=== PATIENT | female | born 1950 | race Caucasian/White ===

== ENCOUNTER → 2018-06-25 09:55 | Outpatient (CLI) | payer MEDICARE, OTHER, SELFPAY ==
--- NOTE | 2018-06-25 | DI.MRI.S_ITS ---
PROCEDURE: MR KNEE RT WO CON INDICATIONS: UNILATERAL PRIMARY OA OF RIGHT KNEE TECHNIQUE: Noncontrast sagittal PD fast spin echo and T2 fast spin echo with fat saturation, sagittal 3-D FLASH with fat saturation; coronal T1 spin echo and PD fast spin echo with fat saturation, and axial PD fast spin echo with fat saturation through the knee. COMPARISON: None. FINDINGS: Image quality: Excellent. Menisci: Medial extrusion of the medial meniscus is present. Linear high signal intensity horizontally to reverse of the medial meniscal body and posterior horn, demonstrating inferior articular surface extension. Degenerative fraying of the free edge of the medial meniscal body and posterior horn. Cruciate ligaments: The anterior and posterior cruciate ligaments appear intact. There is moderate T2 signal elevation along the course of the anterior cruciate ligament, consistent with myxoid degeneration. Medial structures: The medial collateral ligament appears intact. Visualized portions of the pes anserinus tendons appear normal. There is mild T2 signal elevation of the tibial insertion of the semimembranosus. No abnormal bursal fluid. Lateral structures: The lateral collateral ligament demonstrates moderate T2 signal elevation within its substance. The long and short heads of the biceps femoris tendon appear intact. The popliteus tendon appears normal. Iliotibial band appears normal. Anterior structures: The quadriceps and patellar tendons appear intact. Mild lateral patellar subluxation. No femoral trochlear dysplasia or ventral trochlear prominence. Mild edema in the superolateral aspect of the infrapatellar fat pad. Mild prepatellar subcutaneous edema and fluid. Bones and cartilage: No bone marrow contusions or fractures. Moderate tricompartmental periarticular osteophyte formation. A few scattered subchondral cysts within the lateral tibial plateau. Mild degenerative marrow edema within the medial femoral condyle and medial tibial plateau weightbearing aspects. Severe diffuse articular cartilage loss overlies the weightbearing aspects of the medial femoral condyle and medial tibial plateau. Mild diffuse articular cartilage loss overlies the weightbearing aspects of the lateral femoral condyle and lateral tibial plateau. Severe articular cartilage loss overlies the lateral patellar facet and lateral femoral trochlea. Joint space: There is a small knee joint effusion and a small Mcclellan's cyst. Small ganglion cyst along the popliteus. Normal appearing synovial plicae are incidentally noted. IMPRESSION: 1. Tricompartmental osteoarthritis with associated articular cartilage loss. 2. Medial meniscal tearing and extrusion. 3. Partial-thickness lateral collateral ligament tear. 4. Knee joint effusion and Mcclellan's cyst. 5. Insertional tendinitis of the semimembranosus. 6. Findings consistent with lateral patellofemoral friction syndrome in the upper pre-clinical setting. 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 Dictated by: Georgi Vázquez M.D. on 06/25/2018 at 11:35 Approved by: Georgi Vázquez M.D. on 06/25/2018 at 11:43
== END ==
PROVIDERS: Visit Provider Orthopaedic Surgery
DX: M17.11 Unilateral primary osteoarthritis, right knee (principal); S83.241A Other tear of medial meniscus, current injury, right knee, initial encounter; S83.421A Sprain of lateral collateral ligament of right knee, initial encounter; M71.21 Synovial cyst of popliteal space [Baker], right knee
CPT/HCPCS: 73721

== ENCOUNTER 2018-07-31 09:00 | Observation (INO) | payer MEDICARE, OTHER, SELFPAY ==
[2018-07-29 08:30] VITALS: BMI 34.5
[2018-07-30] VITALS (14 sets, daily range): BP systolic 108–148; BP diastolic 49–75; PULSE 50–72; RESP 13–20; TEMP 35.8–37; O2SAT 94–99; BMI 34.5
--- NOTE | 2018-07-30 06:00 | DI.RAD.S_ITS ---
PROCEDURE: XR KNEE RT 1TO2V INDICATIONS: post operative right knee TECHNIQUE: 2 view(s) of the knee acquired. COMPARISON: [facility], MR, MR KNEE RT WO CON, 06/25/2018, 10:14. FINDINGS: Bones: Patient is status post knee joint arthroplasty. Hardware components are in expected positions. Visualized bony structures are intact. Soft tissues: Overlying postoperative changes are noted. IMPRESSION: Total knee arthroplasty with prosthesis in anatomic alignment. Dictated by: Sandra Toledo M.D. on 07/30/2018 at 13:12 Approved by: Sandra Toledo M.D. on 07/30/2018 at 13:13
[2018-07-30] MEDS: ACETAMINOPHEN 325 MG TABLET 975 MG PO ×3 (07:00→19:42)
[2018-07-30] MEDS: LACTATED RINGERS 1,000 ML 42 ML IV (07:01)
[2018-07-30] MEDS: VANCOMYCIN 1,000 MG/200 ML FROZ.PIGGY 200 MG IV (07:01)
[2018-07-30] MEDS: CEFAZOLIN 2 GM/100 ML FROZ.PIGGY IV ×2 (07:52→16:26)
--- NOTE | 2018-07-30 08:07 | PM.PREOP ---
Pre-operative Note Interval Note History & Physical reviewed/Exam performed by Physician: Yes Changes to H&P: No
--- NOTE | 2018-07-30 08:07 | PM.OP.1 ---
Operative Date/Time/Diagnoses Date of procedure: 07/30/18 Time of procedure: 08:02 Pre-op diagnosis: right total knee arthroplasy Post-op diagnosis: same Procedure & Clinicians Procedure: Right total knee arthroplasty Same procedure as scheduled: Yes Indications: The patient has had progressively worsening right knee pain with radiographic changes consistent with arthritis. Non-operative management has failed and the patient has requested total knee replacement. The risks, benefits and alternatives to surgery were discussed with the patient prior to proceeding. Risks discussed included, but were not limited to, failure to relieve pain, stiffness, infection, nerve damage, deep venous thrombosis, pulmonary embolism, stroke, coma, heart attack, permanent paralysis and , as well as the potential need for eventual revision of the prosthetic. Surgeon: Brit Baxter Mems Process Engineer: Edie Savage Anesthesia Type: Spinal Operative Notes Findings: Severe right knee osteoarthritis, adequate stability Closure Type: primary Specimen(s): none sent Prosthetic devices, grafts, tissues, transplants, or devices: Baxter [employer] Nephew Ben BCS2 size 4 right femoral component, size 2 tibia, size 11 poly, 32 by 7-1/2 mm patella Applied: drain(s) Estimated Blood Loss (mL): 250 Blood products transfused: none Tourniquet time (min): 31 Procedure in detail: The patient was seen in the pre-operative area, where the patient identified the right knee as the operative site and this was marked with my initials. The patient received pre-operative antibiotics, and was taken to the operating room and placed on the operative table in the supine position. After satisfactory anesthesia, a real time analyst out was performed. The right leg was encircled with a tourniquet about the proximal thigh, and the leg was prepared from the toes to the tourniquet with ChloroPrep in the usual fashion and draped through sterile drapes. The leg was elevated and exsanguinated with Eschmark bandage and the tourniquet inflated to [250] mmHg pressure. The knee was approached through an approximately 18 cm incision centered over the patella and carried into the knee through a medial parapatellar arthrotomy. A portion of the medial and lateral meniscus was resected. Soft tissue was carefully mobilized around the patella the patella was measured with a caliper. Bone was resected from the patella and the patellar height was reconstituted with up an appropriate sized patellar component. A cover was then placed on the patella. A small amount of additional medial and lateral meniscus was resected. The visionare guide fit well to the distal femur. It looked like an appropriate distal femoral cut and the cut was made without difficulty. The rotation was assessed and the appropriate size femoral guide was placed on the distal femur and finishing cuts were made. There was no evidence of notching. The anterior, posterior and chamfer cuts were then made. The posterior osteophytes and soft tissues were then removed. The posterior capsule was injected with part of a mixture of 60 ml 0.25% Marcaine mixed with 20 ml Exparel for post operative pain control. The remainder of this mixture was injected into the capsule and subcutaneous tissues during cement curing. The tibia was prepared and the visionaire guide fit well to the distal tibia. The rotation was assessed. The patient was placed in extension residual medial and lateral meniscus as well as any residual bone was carefully resected. [No] additional tibia was resected. Hemostasis was achieved especially posteriorly. Additional local was injected into the posterior capsule. The extension gap was assessed and additional releases for gap balancing were performed as necessary. It was checked with the gap inspector final assembly conveyor line. The femoral component was trial was placed and the notch was finished. Trial tibial and femoral components were then placed and the knee placed through a range of motion. Range of motion was [0-130], with good stability throughout the range. The trials were then removed, and the tibia was finished. The bone was prepared with pulsatile lavage, and dried with a sponge. Cement was applied and the final prosthetics placed. Excess cement was removed during and after cement curing. A brief Betadine soak was performed. After confirming there was no extruded cement posteriorly, the final tibial insert was placed. The knee was copiously irrigated and the tourniquet deflated. Hemostasis was obtained with the Bovie. A drain was placed and brought out superolaterally. The capsule was closed with interrupted vicryl suture. The subcutaneous layer was closed with barbed sutures, and the skin with a running 3-0 V-Lock suture and goldie. An Aquacel Ag dressing was applied and the patient was taken to recovery having tolerated the procedure well. Complications: none Condition: stable Disposition: same day surgery Plan for aftercare: The patient will be maintained on a standard total knee replacement protocol with weight bearing as tolerated. The patient will receive aspirin and sequential compression devices for DVT prophylaxis. The patient will be discharged home when safe for the home environment.
[2018-07-30] MEDS: TRANEXAMIC ACID 1,000 MG VIAL 1000 MG INJ ×2 (08:15→09:33)
--- NOTE | 2018-07-30 08:26 | SUR.OPER ---
Supine on padded OR bed. Pillow under head, arms secured on padded armboards <90 degree abduction. Safety belt across torso. Non-operative leg secured with tape over blanket over lower leg. Operative leg secured in DeMayo/Blair positioner. Foam padded brace at thigh of operative leg.
[2018-07-30] MEDS: BUPIVACAINE 0.25% W/ EPI VIAL 50 ML INJ (08:38)
[2018-07-30] MEDS: BUPIVACAINE LIPOSOME 266 MG/20 ML VIAL INJ (08:39)
[2018-07-30] MEDS: POVIDONE-IODINE 15 ML, SODIUM CHLORIDE 0.9% 250 ML TOP (08:40)
--- NOTE | 2018-07-30 08:44 | CM.DANOTE ---
Addendum entered by Caroline Marie LPN 07/30/18 15:46: A d/c to home order is now noted by ortho BRITTANY Irizarry although there is not a progress note from the and there are no therapy notes. Pt arrived to floor mid day per RN Delisa. DCPlanner will check in tomorrow if pt remains here for prn assist with d/c issues and options. Original Note: Discharge Planning/Care Management DCP: assessment: Case received, EMR reviewed and went to room to meet pt and introduce self and role. Pt is still in surgery. Confirmed with RN coordinator that pt is going into room 202 so white board in room is updated with the DCPlanner contact info. Documentation reveals that pt is a 68 year old female who is admitted today for a planned R TKA: surgeon: Dr. Baxter Payer: Medicare and Responsa. Admission status: in review by UR RN team. Anticipate PT will be working with pt. P: follow up with pt to continue to the assessment process and assist prn with d/c issues and options. CM Discharge Assessment Start: 07/30/18 08:43 Freq: Status: Active Protocol: Document 07/30/18 08:43 ITV (Rec: 07/30/18 08:44 ITV [id number]) Discharge Planning Assessment Advance Directives? Yes History Provided By Medical Record Prior Living Arrangements House Household Members spouse Whiteboard Updated in Patient Room with Yes name and ext. # of Helminthology Teacher Comment pt is still in surgery at this time Review Status In Process Next Review Type Continued Stay Review Pre-Anesthesia Assessment Start: 07/29/18 08:30 Freq: Status: Active Protocol: Document 07/29/18 08:30 CAB (Rec: 07/29/18 08:52 CAB [id number]) Pre-Anesthesia Assessment PAC Comment Unable to reach patient by phone x 4 attempts, chart review only. ECHO, NM stress both on 07/22/18 and cardiology visit 07/12/18 to surgery folder for dos Patient Information Reviewed Via Chart Review Diagnostic Results BMP/CMP EKG Other Primary Care Provider Lynn Miller Seen Specialist in Last 12 Months Yes Specialist Seen Contact Center Manager Orthopedist Primary Language Pashto Survey Research Teacher Required No Height 152.4 cm Weight 80.286 kg Body Mass Index (BMI) 34.5 Hx Anesthesia Reactions Unknown Anesthesia Review Requested No Sap Security Architect No Alcohol Intake Frequency Other: None Smoking Status Never smoker Substance Use Type does not use Pain Present Pain Reported Patient is completely paralyzed or No completely immobile Mental Status Oriented to own ability Is patient on oxygen? No Does patient have WILLETT/SOB No Hx Sleep Apnea No Hx Chest Pain No Hx SOB No Hx Syncope or Dizziness No Anti-Coagulant Therapy No Has a Contact Center Manager Yes: Dr. Sanderson-last visit to surgery folder for dos Cardiac Testing Yes: ECHO 07/22/18, NM Stress to surgery folder for dos Hx Pacemaker/ICD No Pacemaker Rep Required? No Cardiac Clearance Received Yes Urinary Catheter Present No Hx Urinary Self Catheterization No Diabetes No Patient No Lactating No Marital Status Lives With spouse
[2018-07-30] MEDS: LACTATED RINGERS 1,000 ML 125 ML IV ×2 (12:18→19:47)
[2018-07-30] MEDS: OXYCODONE IR 5 MG TABLET PO ×4 (13:28→22:54)
--- NOTE | 2018-07-30 14:51 | PC.NURSE ---
1050- Pt admitted to room 202 with R.knee replacement. Dressing to r.knee is cdi with christine wrap in place. Pt given tylenol and not effective for pain control. Pt then given percolone and ice for knee and she is feeling better. Resting comfortably and denies pain.
--- NOTE | 2018-07-30 15:20 | PT.IIE ---
Current Diagnoses Unilateral primary osteoarthritis, right knee (07/30/18) Surgery Performed Operation Date: 07/30/18 07:45 Actual Procedures p Total Knee Arthroplasty(Right) - Brit Baxter MD Surgical History (This Medical Record has been edited. Action required.) History of arthroplasty of left knee (Acute) Hx of abdominal hysterectomy (Acute) Hx of cardiac catheterization (Acute 11/30/08) Hx of cholecystectomy (Acute) Medical History (This Medical Record has been edited. Action required.) CAD (coronary artery disease) (Acute) Depression (Acute) Edema (Acute) HTN (hypertension) (Acute) Hydronephrosis (Acute) Hyperlipidemia (Acute) Hypothyroidism (Acute) Palpitations (Acute) Physical Therapy Inpatient Evaluation/Re-Eval M1 PT/OT-IP Prior Functional Status Start: 07/30/18 11:06 Freq: NEEDED Status: Active Protocol: Document 07/30/18 15:20 AB (Rec: 07/30/18 17:41 AB [id number]) Medical Review Prior Functional Status Medical History Reviewed Yes Communication able to make needs known Mobility and Gait pt stated that she is independent with all mobilities and ambulation without AD Social History Household Members spouse Living Arrangements House Number of Floors (Floors) Two Floors Number of Stairs To Enter/Railing? 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 an RN M2 PT-IP Current Condition Start: 07/30/18 11:06 Freq: NEEDED Status: Active Protocol: Document 07/30/18 15:20 AB (Rec: 07/30/18 17:41 AB [id number]) Physical Therapy Current Condition Current Condition Evaluation Date 07/30/18 Treatment Diagnosis s/p R TKA; difficulty in walking Onset Date 07/30/18 Weight Bearing Status Weight Bearing Status Weight Bear as Tolerated M3 PT-IP Subjective Start: 07/30/18 11:06 Freq: NEEDED Status: Active Protocol: Document 07/30/18 15:20 AB (Rec: 07/30/18 17:41 AB [id number]) Subjective Physical Therapy Visit Type Type Initial Evaluation Visit Start Time 15:20 Visit Stop Time 16:30 Total Visit Minutes 70 Number of PUBLIC RELATIONS PROFESSIONAL Visits 0 Physical Therapy Visit Comments Patient Comments pt agreeable to do PT; stated that she changed her mind about going home today when she felt pain on her knee. Therapy Pain Assessment Pain When Pain Assessed At Rest Pain Present Pain Present Pain Reported Location Right Knee Intensity 3 Scale Used increased to 8/10 with movement Pain Behaviors Guarding Pain Management Techniques Apply Cold Re-positioning Timing of Activity with Medications M4 PT-IP Mobility and Gait Start: 07/30/18 11:06 Freq: NEEDED Status: Active Protocol: Document 07/30/18 15:20 AB (Rec: 07/30/18 17:41 AB [id number]) PT-Bed Mobility Assessment Supine to Sit Supine to Sit Standby Assistance 1 Person Assistance Sit to Supine Sit to Supine Minimal Assistance 1 Person Assistance Scooting Scooting to Edge of Bed Standby Assistance PT-Transfer Assessment Sit to and From Stand Sit to and from Stand Minimal Assistance Equipment Transfer Assistive Device Gait Belt Front Wheeled Walker Orthotic/Prosthetic Devices or Brace: No Transfers Transfer Destination Bedside Commode Transfer Technique Stand Step Pivot Transfer Ability Level of Assist Minimal Assistance 1 Person Assistance Use of Upper Extremities Comments Mobility Comments BP supine: 138/71. pt completed supine to sit SBA with cues. able to sit on EOB SBA. c/o nausea sitting on EOB. BP: 124/80. pt rested sitting and wants to use the toilet. bedside commode positioned. pt completed sit to stand min A and cues and completed step transfer using FWW min A. pt completed sit to stand from the toilet min A and transferred to the bed using FWW min A and cues. pt completed ambulation in room. pt stated that she cannot do stair training today and requested to go back to bed due to nausea. pt completed sit to supine min A to elevated RLE up on bed. ice pack provided. call light and table placed within reach. Gait Assessment Gait Gait Assistance Required: Minimum Assistance Distance (Feet) 50 Able to Maintain Weight Bearing Status Yes During Gait Assistive Devices Assistive Device Gait Belt Front Wheeled Walker Orthotic/Prosthetic Devices or Brace: No Gait Deviations General Gait Pattern Antalgic Decreased Stride Length Decreased Feet Clearance Factors Limiting Gait Function Factors Limiting Gait Function Decreased Activity Tolerance Decreased Strength Limited Range of Motion Pain Poor Balance Poor Safety Awareness PT-Balance Assessment Standing Balance and Reactions Static Standing Balance Ability Fair Dynamic Standing Balance Ability Fair Device Used FWW M5 PT-IP Objective Assessments Start: 07/30/18 11:06 Freq: NEEDED Status: Active Protocol: Document 07/30/18 15:20 AB (Rec: 07/30/18 17:41 AB [id number]) Orientation Orientation/Cognition Level of Alertness Alert Orientation Name Age Place Situation Safety Awareness Decreased Safety Awareness Memory Description Short Term Impaired Gross Range of Motion Lower Extremity ROM Assessment Right Impaired Impairments R knee flexion: 50 deg Strength Lower Extremity Strength Assessment Right Impaired Knee 3-/5 Coordination Assessment Gross Coordination Gross Coordination WNL Sensation Assessment Sensation Gross Sensation WNL Muscle Tone Muscle Tone WNL Yes M6 PT-IP Treatment Start: 07/30/18 11:06 Freq: NEEDED Status: Active Protocol: Document 07/30/18 15:20 AB (Rec: 07/30/18 17:41 AB [id number]) Physical Therapy Treatment Exercises Exercises Gluteal Sets Quad Sets Heel Slides Education Education Provided Precautions Weight Bearing Status Post-Op Packet Safety M7 PT-IP Assessment and Plan Start: 07/30/18 11:06 Freq: NEEDED Status: Active Protocol: Document 07/30/18 15:20 AB (Rec: 07/30/18 17:41 AB [id number]) PT Summary Assessment and Plan Potential Rehabilitation Potential Good Status of Condition at Evaluation Evolving Summary Impairments Pain ROM Strength Balance Coordination Sensation Tone Cognition Bed Mobility Transfers Gait Activity Tolerance Assessment Summary pt requiring min A with mobility and with c/o nausea limiting activity. pt plans to go home with spouse to assist her. set up caregiver training tomorrow Sun, at 1030 am. Goals Bed Mobility Goal Standby Assistance Transfer Goal Standby Assistance Crutches Gait Goal Standby Assistance Crutches Gait Distance 150 Other Goals up/down 3 steps without rails CGA up/down 14 steps with R rail ascending SBA Days to Meet Goals 5 Frequency of Treatment Frequency Of Treatment Twice a Day Treatment Plan Physical Therapy Treatment Plan Bed Mobility Training Transfer Training Gait Training Therapeutic Exercise Balance Retraining Post Op Education Discharge Planning Hot or Cold Pack Neuromuscular Re-ed Coordination Retraining Manual Therapy Other Recommendations and Next Treatment ambulation; caregiver training Focus 07/30/18 at 1030 am; stair climbing Recommendations To Nursing Amount of Assist Needed 1 Person Assist Discharge Recommendations PT Discharge Recommendations Home with Assistance Outpatient PT
--- NOTE | 2018-07-30 18:43 | PC.NURSE ---
Mely shift note: Patient up out of bed with PT, only able to mobilize in room. Unable to mobilize outside in hallway and unable to use stairs. Pain control required with Oxycodone PRN, and Zofran administered x 1. Patient does not feel comfortable going home and PT agrees patient requires further therapy. Dr. Valdez notified, and Discharge instructions cancelled for now, until cleared by PT.
[2018-07-30] MEDS: ROSUVASTATIN 10 MG TABLET 5 MG PO (22:01)
[2018-07-30] MEDS: ASPIRIN EC 81 MG TABLET PO (22:01)
[2018-07-30] MEDS: DOCUSATE 100 MG CAPSULE PO (22:01)
[2018-07-31] MEDS: CEFAZOLIN 2 GM/100 ML FROZ.PIGGY IV (00:10)
[2018-07-31] MEDS: OXYCODONE IR 5 MG TABLET PO ×3 (01:40→05:15)
[2018-07-31 03:26] VITALS: BP 142/75; PULSE 58; RESP 18; TEMP 36.5; O2SAT 100
[2018-07-31] MEDS: ACETAMINOPHEN 325 MG TABLET 975 MG PO ×3 (03:34→20:30)
--- NOTE | 2018-07-31 04:13 | PC.NURSE ---
yardage caller DR. Valdez paged via answering service to report pt. C/O increased pain & spasms to rt. knee/leg rated pain level after 975 mg. of Tylenol & Percolone earlier. Awaiting call back.
--- NOTE | 2018-07-31 04:42 | PC.NURSE ---
Called independent consultant MD again, via answering service awaiting call back.
[2018-07-31] MEDS: hydrOXYzine pamoate 25 MG CAPSULE PO ×4 (05:12→23:17)
[2018-07-31] MEDS: LACTATED RINGERS 1,000 ML 125 ML IV (05:26)
[2018-07-31] MEDS: LEVOTHYROXINE 75 MCG TABLET PO (05:26)
--- NOTE | 2018-07-31 06:07 | PC.NURSE ---
0500 Dr. Valdez called back orers received Vistaril 25 mg. PO for spasms & increased Oxycodone to 5-10 mg. Vistaril admin. & another 5 mg. of Oxycodone admin. Re-assessed pt. & pain level @ 0 at this time. Will cont. POC & monitor.
[2018-07-31 07:09] LABS: Hematocrit 34.1 % (36-46); Hemoglobin 11.4 g/dL (12.0-16.0)
--- NOTE | 2018-07-31 07:09 | PM.PNPO.1 ---
Subjective Date Patient Seen: 07/31/18 Interval history: Patient seen bedside s/p TKA POD #1. Patient is having significant nausea/vomiting, and is apprehensive about going home due to pain. She denies CP, SOB. Exam Vital Signs (past 8 hours): - 07/31/18 23:40 08/01/18 04:58 Temperature 98.1 F 98.6 F Pulse Rate 73 64 Respiratory Rate 73 H 16 Blood Pressure 133/74 126/71 Pulse Oximetry 97 96 Oxygen Delivery Method Room Air Oxygen Flow Rate 0 Narrative Exam Narrative: WDWN, mildly distressed. Dressing is CDI, no signs of discharge, minimal erythema. Calf is soft and compressible and she has full ROM of the ankle. Objective Labs Result Diagrams: 07/31/18 06:43 Labs: Laboratory Results - last 24 hr 07/31/18 06:43 Hgb 11.4 L Hct 34.1 L Assessment & Plan Post-op Postoperative Procedures Operation Date: 07/30/18 07:45 Actual Procedures Side Surgeon p Total Knee Arthroplasty Right Brit Baxter MD 1. POD #1 s/p above procedure-change to compazine for N/V, work with PT, pain control. Dispo-based on PT and control of pain Quality VTE Deep Vein Thrombosis/Pulmonary Embolism Present on Admission: No
[2018-07-31 07:25] VITALS: BP 111/72; PULSE 64; RESP 20; TEMP 36.3; O2SAT 99
[2018-07-31] MEDS: PROCHLORPERAZINE 10 MG/2 ML VIAL 5 MG IV (08:07)
[2018-07-31] MEDS: DOCUSATE 100 MG CAPSULE PO ×2 (08:31→20:30)
[2018-07-31] MEDS: ASPIRIN EC 81 MG TABLET PO ×2 (08:31→20:30)
[2018-07-31] MEDS: LISINOPRIL 5 MG TABLET PO (08:31)
[2018-07-31] MEDS: CHOLECALCIFEROL (VITAMIN D3) 1,000 UNIT TABLET 1000 UNIT PO (08:31)
[2018-07-31] MEDS: MORPHINE 4 MG/ML INJ IV (09:13)
[2018-07-31] MEDS: SODIUM CHLORIDE 0.9% 1,000 ML 100 ML IV ×2 (09:14→18:17)
--- NOTE | 2018-07-31 10:55 | PT.IPTN ---
Current Diagnoses Unilateral primary osteoarthritis, right knee (07/30/18) Surgery Performed Operation Date: 07/30/18 07:45 Actual Procedures p Total Knee Arthroplasty(Right) - Brit Baxter MD Physical Therapy Treatment Note M2 PT-IP Current Condition Start: 07/30/18 11:06 Freq: NEEDED Status: Active Protocol: Document 07/30/18 15:20 AB (Rec: 07/30/18 17:41 AB [id number]) Physical Therapy Current Condition Current Condition Evaluation Date 07/30/18 Treatment Diagnosis s/p R TKA; difficulty in walking Onset Date 07/30/18 Weight Bearing Status Weight Bearing Status Weight Bear as Tolerated M3 PT-IP Subjective Start: 07/30/18 11:06 Freq: NEEDED Status: Active Protocol: Document 07/31/18 10:55 GGD (Rec: 07/31/18 12:45 GGD [id number]) Subjective Physical Therapy Visit Type Type Treatment Note Visit Start Time 10:30 Visit Stop Time 10:55 Total Visit Minutes 25 Number of CONDUCTOR/BRAKEMAN Visits 1 Physical Therapy Visit Comments Patient Comments PT willing to work with PT. Therapy Pain Assessment Pain When Pain Assessed At Rest Pain Present Pain Present Pain Reported M4 PT-IP Mobility and Gait Start: 07/30/18 11:06 Freq: NEEDED Status: Active Protocol: Document 07/31/18 10:55 GGD (Rec: 07/31/18 12:45 GGD [id number]) PT-Bed Mobility Assessment Sit to Supine Sit to Supine Minimal Assistance 1 Person Assistance Scooting Scooting to Edge of Bed Standby Assistance PT-Transfer Assessment Sit to and From Stand Sit to and from Stand Contact Guard Assistance Use of Upper Extremities Equipment Transfer Assistive Device Gait Belt Front Wheeled Walker Orthotic/Prosthetic Devices or Brace: No Transfers Transfer Destination Bed Transfer Ability Level of Assist Minimal Assistance 1 Person Assistance Use of Upper Extremities Comments Mobility Comments min A with right LE Gait Assessment Gait Gait Assistance Required: Contact Guard Assist 1 Person Assist Distance (Feet) 50 Assistive Devices Assistive Device Gait Belt Front Wheeled Walker Orthotic/Prosthetic Devices or Brace: No Gait Deviations General Gait Pattern Antalgic Decreased Stride Length Decreased Feet Clearance Factors Limiting Gait Function Factors Limiting Gait Function Decreased Activity Tolerance Decreased Strength Limited Range of Motion Pain Poor Balance Poor Safety Awareness M5 PT-IP Objective Assessments Start: 07/30/18 11:06 Freq: NEEDED Status: Active Protocol: Document 07/30/18 15:20 AB (Rec: 07/30/18 17:41 AB [id number]) Orientation Orientation/Cognition Level of Alertness Alert Orientation Name Age Place Situation Safety Awareness Decreased Safety Awareness Memory Description Short Term Impaired Gross Range of Motion Lower Extremity ROM Assessment Right Impaired Impairments R knee flexion: 50 deg Strength Lower Extremity Strength Assessment Right Impaired Knee 3-/5 Coordination Assessment Gross Coordination Gross Coordination WNL Sensation Assessment Sensation Gross Sensation WNL Muscle Tone Muscle Tone WNL Yes M6 PT-IP Treatment Start: 07/30/18 11:06 Freq: NEEDED Status: Active Protocol: Document 07/31/18 10:55 GGD (Rec: 07/31/18 12:45 GGD [id number]) Physical Therapy Treatment Exercises Exercises Gluteal Sets Quad Sets Heel Slides Seated Knee Flexion/Extension Education Education Provided Safety M7 PT-IP Assessment and Plan Start: 07/30/18 11:06 Freq: NEEDED Status: Active Protocol: Document 07/31/18 10:55 GGD (Rec: 07/31/18 12:45 GGD [id number]) PT Summary Assessment and Plan Summary Assessment Summary Pt had increase in C/O pain and nausea with mobility. She had decrease alertness, but increase alertness with activity. She was limited mobility due to pain. Pt spouse is able to assist at home. Frequency of Treatment Frequency Of Treatment Twice a Day Treatment Plan Physical Therapy Treatment Plan Bed Mobility Training Transfer Training Gait Training Therapeutic Exercise Balance Retraining Post Op Education Discharge Planning Hot or Cold Pack Neuromuscular Re-ed Coordination Retraining Manual Therapy Recommendations To Nursing Amount of Assist Needed 1 Person Assist Discharge Recommendations PT Discharge Recommendations Home with Assistance Outpatient PT
[2018-07-31 12:10] VITALS: BP 137/73; PULSE 56; RESP 18; TEMP 36.6; O2SAT 99
--- NOTE | 2018-07-31 13:31 | PC.NURSE ---
Pt given 5mg of iv compazine this am for nausea and dry heaves. BRITTANY Boo also wrote for pt to have a one time order of iv morphine 4mg and this was helpful for pain. Pt then developed cramps to her r.knee, given vistaril with good effect. Pt up to the bathroom a couple of times and worked with pt, most of her nausea has been when she has been ambulating. visiting and just went down to lunch. Pt is resting comfortably.
[2018-07-31] MEDS: HYDROMORPHONE 2 MG TABLET PO ×2 (15:36→23:20)
--- NOTE | 2018-07-31 15:39 | PT.IPTN ---
Current Diagnoses Unilateral primary osteoarthritis, right knee (07/30/18) Surgery Performed Operation Date: 07/30/18 07:45 Actual Procedures p Total Knee Arthroplasty(Right) - Brit Baxter MD Physical Therapy Treatment Note M2 PT-IP Current Condition Start: 07/30/18 11:06 Freq: NEEDED Status: Active Protocol: Document 07/30/18 15:20 AB (Rec: 07/30/18 17:41 AB [id number]) Physical Therapy Current Condition Current Condition Evaluation Date 07/30/18 Treatment Diagnosis s/p R TKA; difficulty in walking Onset Date 07/30/18 Weight Bearing Status Weight Bearing Status Weight Bear as Tolerated M3 PT-IP Subjective Start: 07/30/18 11:06 Freq: NEEDED Status: Active Protocol: Document 07/31/18 14:56 LJ (Rec: 07/31/18 15:38 LJ [id number]) Subjective Physical Therapy Visit Type Type Treatment Note Visit Start Time 14:56 Visit Stop Time 15:28 Total Visit Minutes 32 Physical Therapy Visit Comments Patient Comments Pt sitting in chair. Reports she had recently ambulated to the toilet. Still groggy from last pain med but willing to get up and ambulate in hallway . Therapy Pain Assessment Pain When Pain Assessed During Mobility Pain Present Pain Present Pain Reported Location Right Knee Intensity 5 Scale Used increased with movement Pain Behaviors Facial Grimacing Moaning Wincing Pain Management Techniques Apply Cold Re-positioning M4 PT-IP Mobility and Gait Start: 07/30/18 11:06 Freq: NEEDED Status: Active Protocol: Document 07/31/18 14:56 [email or web address] (Rec: 07/31/18 15:38 LJ [id number]) PT-Transfer Assessment Sit to and From Stand Sit to and from Stand Contact Guard Assistance Use of Upper Extremities Equipment Transfer Assistive Device Gait Belt Front Wheeled Walker Orthotic/Prosthetic Devices or Brace: No Transfers Transfer Destination Chair Transfer Ability Level of Assist Minimal Assistance 1 Person Assistance Use of Upper Extremities Comments Mobility Comments min A with right LE and IV when getting out of chair Gait Assessment Gait Gait Assistance Required: Contact Guard Assist 1 Person Assist Distance (Feet) 75 Assistive Devices Assistive Device Gait Belt Front Wheeled Walker Orthotic/Prosthetic Devices or Brace: No Gait Deviations General Gait Pattern Antalgic Decreased Stride Length Decreased Feet Clearance Step-to Gait Factors Limiting Gait Function Factors Limiting Gait Function Decreased Activity Tolerance Decreased Strength Limited Range of Motion Pain Poor Balance Poor Safety Awareness Comments Gait Comments Pt performs step-to gait with forward leaning. Required several cues to stand tall as it appeared she would lean too far forward in FWW presenting a balance safety issue. Lacks dorsiflexion in R ankle at this point in time. Pt took 2- 20 sec rest breaks during ambulation. M5 PT-IP Objective Assessments Start: 07/30/18 11:06 Freq: NEEDED Status: Active Protocol: Document 07/30/18 15:20 AB (Rec: 07/30/18 17:41 AB [id number]) Orientation Orientation/Cognition Level of Alertness Alert Orientation Name Age Place Situation Safety Awareness Decreased Safety Awareness Memory Description Short Term Impaired Gross Range of Motion Lower Extremity ROM Assessment Right Impaired Impairments R knee flexion: 50 deg Strength Lower Extremity Strength Assessment Right Impaired Knee 3-/5 Coordination Assessment Gross Coordination Gross Coordination WNL Sensation Assessment Sensation Gross Sensation WNL Muscle Tone Muscle Tone WNL Yes M6 PT-IP Treatment Start: 07/30/18 11:06 Freq: NEEDED Status: Active Protocol: Document 07/31/18 14:56 LJ (Rec: 07/31/18 15:38 LJ [id number]) Physical Therapy Treatment Education Education Provided Safety M7 PT-IP Assessment and Plan Start: 07/30/18 11:06 Freq: NEEDED Status: Active Protocol: Document 07/31/18 14:56 LJ (Rec: 07/31/18 15:38 LJ [id number]) PT Summary Assessment and Plan Potential Rehabilitation Potential Good Status of Condition at Evaluation Evolving Summary Impairments Pain ROM Strength Balance Coordination Sensation Tone Cognition Bed Mobility Transfers Gait Activity Tolerance Assessment Summary Pt had increase in pain but no nausea with mobility. She had decrease alertness, but increase alertness with activity. She was limited mobility due to pain. Pt spouse is able to assist at home. Goals Bed Mobility Goal Standby Assistance Transfer Goal Standby Assistance Crutches Gait Goal Standby Assistance Crutches Gait Distance 150 Other Goals up/down 3 steps without rails CGA up/down 14 steps with R rail ascending SBA Days to Meet Goals 5 Frequency of Treatment Frequency Of Treatment Twice a Day Treatment Plan Physical Therapy Treatment Plan Bed Mobility Training Transfer Training Gait Training Therapeutic Exercise Balance Retraining Post Op Education Discharge Planning Hot or Cold Pack Neuromuscular Re-ed Coordination Retraining Manual Therapy Recommendations To Nursing Amount of Assist Needed 1 Person Assist Discharge Recommendations PT Discharge Recommendations Home with Assistance Outpatient PT
[2018-07-31 17:58] VITALS: BP 127/78; PULSE 77; RESP 20; TEMP 36.8; O2SAT 77
[2018-07-31 19:47] VITALS: BP 144/76; PULSE 60; RESP 20; TEMP 36.7; O2SAT 99
[2018-07-31] MEDS: ROSUVASTATIN 10 MG TABLET 5 MG PO (20:30)
[2018-07-31 23:40] VITALS: BP 133/74; PULSE 73; RESP 73; TEMP 36.7; O2SAT 97
[2018-07-31] MEDS: SODIUM CHLORIDE 0.9% FLUSH 10 ML IV (23:41)
--- NOTE | 2018-07-31 23:57 | PC.NURSE ---
Denies any nausea, states I eat a good dinner. Stopped IVF & saline locked IV access. Requested Vistaril & pain med. 25 mg. Vistaril PO & 2 mg. of PO Dilaudid admin. Will cont. POC & monitor.
[2018-08-01] MEDS: HYDROMORPHONE 2 MG TABLET PO ×2 (02:39→07:30)
[2018-08-01 04:58] VITALS: BP 126/71; PULSE 64; RESP 16; TEMP 37; O2SAT 96
[2018-08-01] MEDS: LEVOTHYROXINE 75 MCG TABLET PO (05:45)
--- NOTE | 2018-08-01 07:10 | P.PN_ITS ---
Subjective Date Patient Seen: 07/31/18 Interval history: Patient seen bedside s/p TKA POD #1. Patient is having sig nificant nausea/vomiting, and is apprehensive about going home due to pain. She denies CP, SOB. Exam Vital Signs (past 8 hours): - 07/31/18 23:40 08/01/18 04:58 Temperature 98.1 F 98.6 F Pulse Rate 73 64 Respiratory Rate 73 H 16 Blood Pressure 133/74 126/71 Pulse Oximetry 97 96 Oxygen Delivery Method Room Air Oxygen Flow Rate 0 Narrative Exam Narrative: WDWN, mildly distressed. Dressing is CDI, no signs of discharge, minimal erythema. Calf is soft and compressible and she has full ROM of the ankle. Objective Labs Result Diagrams: 07/31/18 06:43 Labs: Laboratory Results - last 24 hr 07/31/18 06:43 Hgb 11.4 L Hct 34.1 L Assessment & Plan Post-op Postoperative Procedures Operation Date: 07/30/18 07:45 Actual Procedures Side Surgeon p Total Knee Arthroplasty Right Brit Baxter MD 1. POD #1 s/p above procedure-change to compazine for N/V, work with PT, pain control. Dispo-based on PT and control of pain Quality VTE Deep Vein Thrombosis/Pulmonary Embolism Present on Admission: No
[2018-08-01] MEDS: hydrOXYzine pamoate 25 MG CAPSULE PO (07:30)
[2018-08-01 08:20] VITALS: BP 145/77; PULSE 76; RESP 14; TEMP 36.9; O2SAT 97
[2018-08-01] MEDS: DOCUSATE 100 MG CAPSULE PO (08:23)
[2018-08-01] MEDS: SODIUM CHLORIDE 0.9% FLUSH 10 ML IV (08:23)
[2018-08-01] MEDS: ASPIRIN EC 81 MG TABLET PO (08:23)
[2018-08-01] MEDS: LISINOPRIL 5 MG TABLET PO (08:23)
[2018-08-01] MEDS: CHOLECALCIFEROL (VITAMIN D3) 1,000 UNIT TABLET 1000 UNIT PO (08:23)
[2018-08-01] MEDS: ACETAMINOPHEN 325 MG TABLET 975 MG PO (08:23)
--- NOTE | 2018-08-01 08:27 | PM.DS.1 ---
History of Present Illness Date Patient Seen: 08/01/18 Time Patient Seen: 08:28 Chief complaint: 17640 RIGHT TKA Narrative: Hospital day 3, postop day 2 following right total knee arthroplasty. Patient has remained stable postoperatively. Did have some nausea vomiting 1st postop day. That has resolved. She was having nausea with oxycodone. She was changed to Dilaudid and has done well. Patient feels she is ready to go home today. PT feels she is stable for home. She does have physical therapy scheduled at [facility] in [place]. Discharge Providers Date of admission: 07/30/18 06:01 Discharge Date: 08/01/18 Primary care physician: Bonita Ruby MD Consults: 07/30/18 06:00 Consult to Anesthesiology Routine Comment: Consulting Provider: Anesthesiologist Reason for consultation: Regional block for post operative pain control 07/30/18 11:09 Consult to Physical Therapy Evaluate & Treat Comment: pt wants to discharge home today 07/30/18 Physician Instructions: Evaluate and Treat 07/30/18 11:15 Consult to Discharge Planning Routine Comment: Consult to Physical Therapy Evaluate & Treat Comment: Physician Instructions: postop TKA protocol Consult to Respiratory Therapy Evaluate & Treat Comment: Physician Instructions: Evaluate and treat Discharge provider: Ari Cook PA-C Summary Discharge Diagnosis: Postop right total knee arthroplasty Hospital Course: patient brought to hospital on 07/30/2018 for above-noted surgery. She remained stable postoperatively. Had some nausea and vomiting initially. Progressed well with physical therapy. Ready for discharge home on postop day 2. Status at Discharge Cognitive/behavioral status at discharge: oriented Functional status at discharge: uses cane/walker Overall status at discharge: patient is progressing back to baseline Time Spent with Patient Less than 30 minutes Exam Vital Signs (past 8 hours): - 08/01/18 04:58 Temperature 98.6 F Pulse Rate 64 Respiratory Rate 16 Blood Pressure 126/71 Pulse Oximetry 96 Oxygen Delivery Method Room Air Oxygen Flow Rate 0 Narrative Exam Narrative: legs. Aquacel dressing to right knee is dry without drainage or inflammation. No calf pain or swelling. Pulses symmetrical. Objective Labs Result Diagrams: 07/31/18 06:43 Discharge Plan Discharge Plan Patient Disposition: Home Discharge Med Rec/Prescriptions Prescriptions: New acetaminophen 325 mg Tablet 975 mg PO TID Qty: 0 RF: 0 aspirin 81 mg Tablet,Delayed Release (Dr/Ec) 81 mg PO BID Qty: 0 RF: 0 docusate sodium 100 mg Capsule 100 mg PO BID Qty: 0 RF: 0 oxycodone 5 mg Tablet 5 mg PO Q4-6H PRN (Reason: Pain, Moderate (4-6)) Qty: 0 RF: 0 hydromorphone 2 mg Tablet 2 mg PO Q3H PRN (Reason: Pain, Severe (7-10)) Qty: 20 RF: 0 Continued LEVOTHYROXINE SODIUM 75 mcg PO QDAY Qty: 0 RF: 0 [LIPITOR] 1 tab PO QDAY Qty: 0 RF: 0 CHOLECALCIFEROL (VITAMIN D3) (Vitamin D3) 1,000 unit PO QDAY Qty: 0 RF: 0 lisinopril 5 mg Tablet 5 mg PO DAILY RF: 0 Follow up/Referrals: Brit Baxter MD [Physician] - (Follow up in the office at your previously scheduled post-op appointment in 5-7 days.) Provider Discharge Instructions Diet: Diet as Tolerated Activity: Weightbearing as tolerated, use walker until cleared by physical therapy. Elevate operative leg regularly to reduce swelling. Cold/Heat Therapy: Apply ice to affected area for 20 minutes at a time at least hourly while awake. Skin/Wound/Dressing Care Report to your healthcare provider any signs of infection, such as:: chills, fever, night sweats, increased pain, unusual drainage and unusual redness Dressing: Keep dressing clean, dry, and intact. May shower with it in place but no soaking. Visit Report/Discharge Packet Instructions: DI for Knee Replacement Stand Alone Forms: Surgery Discharge Discharge Data Primary Care Provider: Bonita Ruby Attending Provider: Brit Baxter Admit Date/Time: 07/30/18 06:01 Quality VTE Deep Vein Thrombosis/Pulmonary Embolism Present on Admission: No
--- NOTE | 2018-08-01 11:21 | CM.DPC ---
DCP Cont: Met with patient today. She is being discharged home. Had her sign updated IMM. Pleasant. 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 She will be working with physical therapy before she leaves today. P: Patient is to discharge home today. Denise Mustafa RN/Material Controller
[2018-08-01] MEDS: OXYCODONE IR 5 MG TABLET PO (11:56)
--- NOTE | 2018-08-01 12:09 | PT.IPTN ---
Current Diagnoses Unilateral primary osteoarthritis, right knee (07/30/18) Surgery Performed Operation Date: 07/30/18 07:45 Actual Procedures p Total Knee Arthroplasty(Right) - Brit Baxter MD Physical Therapy Treatment Note M2 PT-IP Current Condition Start: 07/30/18 11:06 Freq: NEEDED Status: Active Protocol: Document 07/30/18 15:20 AB (Rec: 07/30/18 17:41 AB [id number]) Physical Therapy Current Condition Current Condition Evaluation Date 07/30/18 Treatment Diagnosis s/p R TKA; difficulty in walking Onset Date 07/30/18 Weight Bearing Status Weight Bearing Status Weight Bear as Tolerated M3 PT-IP Subjective Start: 07/30/18 11:06 Freq: NEEDED Status: Active Protocol: Document 08/01/18 11:59 SA (Rec: 08/01/18 12:08 SA [id number]) Subjective Physical Therapy Visit Type Type Treatment Note Visit Start Time 11:20 Visit Stop Time 11:45 Total Visit Minutes 25 Number of ROTO GRAVURE PRESS OPERATOR Visits 2 Physical Therapy Visit Comments Patient Comments Pt ready to try stairs, reports low pain level. Therapy Pain Assessment Pain When Pain Assessed During Mobility Pain Present Pain Present Pain Reported Location Right Knee Intensity 2 Scale Used Numeric (1 - 10) M4 PT-IP Mobility and Gait Start: 07/30/18 11:06 Freq: NEEDED Status: Active Protocol: Document 08/01/18 11:59 SA (Rec: 08/01/18 12:08 SA [id number]) PT-Bed Mobility Assessment Rolling Level of Assist Standby Assistance Supine to Sit Supine to Sit Standby Assistance Sit to Supine Sit to Supine Standby Assistance Scooting Scooting to Edge of Bed Standby Assistance PT-Transfer Assessment Sit to and From Stand Sit to and from Stand Standby Assistance Use of Upper Extremities Equipment Transfer Assistive Device Gait Belt Front Wheeled Walker Orthotic/Prosthetic Devices or Brace: No Transfers Transfer Destination Chair Toilet Transfer Technique Stand Step Pivot Transfer Ability Level of Assist Contact Guard Assistance Comments Mobility Comments Pt progressing well with mobility, requiring lower level of assist. No LOB and able to increase WBing through RLE with standing tasks. Gait Assessment Gait Gait Assistance Required: Standby Assistance Contact Guard Assist 1 Person Assist Distance (Feet) 150 Assistive Devices Assistive Device Gait Belt Front Wheeled Walker Orthotic/Prosthetic Devices or Brace: No Gait Deviations General Gait Pattern Antalgic Decreased Stride Length Decreased Feet Clearance Step-to Gait Factors Limiting Gait Function Factors Limiting Gait Function Decreased Activity Tolerance Decreased Strength Limited Range of Motion Comments Gait Comments Increasing gait speed and distance with cues for uprigjht posture and decreasing WBing through UEs. Stair Climbing Assessment Evaluation Level of Assist On Stairs Contact Guard Assistance Devices Stair Climbing Assistive Devices Right Railing Technique/Endurance Stair Climbing Direction Ascend and Descend Stair Climbing Technique Step to Step Number of Steps Climbed 3 Query Text: Stair Climbing Set # Repetitions (reps) 2 Comments Stair Climbing Comments Pt able to manage stairs safely with CGA and use of single rail. Denies pain with task and feels confident she will feel safe with her present. M5 PT-IP Objective Assessments Start: 07/30/18 11:06 Freq: NEEDED Status: Active Protocol: Document 07/30/18 15:20 AB (Rec: 07/30/18 17:41 AB [id number]) Orientation Orientation/Cognition Level of Alertness Alert Orientation Name Age Place Situation Safety Awareness Decreased Safety Awareness Memory Description Short Term Impaired Gross Range of Motion Lower Extremity ROM Assessment Right Impaired Impairments R knee flexion: 50 deg Strength Lower Extremity Strength Assessment Right Impaired Knee 3-/5 Coordination Assessment Gross Coordination Gross Coordination WNL Sensation Assessment Sensation Gross Sensation WNL Muscle Tone Muscle Tone WNL Yes M6 PT-IP Treatment Start: 07/30/18 11:06 Freq: NEEDED Status: Active Protocol: Document 08/01/18 11:59 SA (Rec: 08/01/18 12:08 [id number]) Physical Therapy Treatment Exercises Exercises Ankle Pumps Gluteal Sets Quad Sets Seated Knee Flexion/Extension Education Education Provided Post-Op Packet Safety M7 PT-IP Assessment and Plan Start: 07/30/18 11:06 Freq: NEEDED Status: Active Protocol: Document 08/01/18 11:59 SA (Rec: 08/01/18 12:08 [id number]) PT Summary Assessment and Plan Potential Rehabilitation Potential Good Status of Condition at Evaluation Evolving Summary Assessment Summary Pt ready for d/c this afternoon, at home to provide care, have FWW, elevated toilet seat and able to manage 3 stairs into home. Frequency of Treatment Frequency Of Treatment Twice a Day Treatment Plan Physical Therapy Treatment Plan Bed Mobility Training Transfer Training Gait Training Therapeutic Exercise Balance Retraining Post Op Education Discharge Planning Hot or Cold Pack Neuromuscular Re-ed Coordination Retraining Manual Therapy Recommendations To Nursing Amount of Assist Needed 1 Person Assist Discharge Recommendations PT Discharge Recommendations Home with Assistance Outpatient PT
--- NOTE | 2018-08-01 13:10 | PC.NURSE ---
Discharge after discussion with Dr Baxter, pt not going home with PO dilaudid Rx, this was destroyed prior to d/c per MD request. pt has oxy at home already since george arreola pt. medicated prior to d/c. cleared by PT. d/c instructions provided to pt and her . questions answered to pt satisfaction. aware to contact MD with any additional questions or concerns. pt left in w/c with [employer] escort. States she took all belongings with her.
== END 2018-08-01 12:00 | disposition home or self-care (01) ==
LOC: AC 08-01 10:55 → OR 08-01 13:27 → AC 08-01 13:28 → OR 08-01 13:28
PROVIDERS: Admitting Provider Physician Assistant; Family Provider Internal Medicine; PCP Internal Medicine; Visit Provider Orthopaedic Surgery
PROC: 0SRC0JZ Replacement of Right Knee Joint with Synthetic Substitute, Open Approach (ICD-10-PCS; CPT 27447; principal; 2018-07-30 07:45)
DX: M17.11 Unilateral primary osteoarthritis, right knee (principal); I10 Essential (primary) hypertension; E03.9 Hypothyroidism, unspecified; M81.0 Age-related osteoporosis without current pathological fracture; E66.9 Obesity, unspecified; R00.2 Palpitations; R01.1 Cardiac murmur, unspecified; Z68.34 Body mass index [BMI] 34.0-34.9, adult
CPT/HCPCS: 27447; 36415; 73560; 85014; 85018; 94760; 97110; 97116; 97162; 97530; C1776; G0378; C9290; J0690; J0780; J2250; J2270; J2704; J3010; J3370

== ENCOUNTER → 2019-04-16 15:09 | Outpatient (CLI) | payer MEDICARE, OTHER, SELFPAY ==
[2018-07-30 13:30] VITALS: BMI 34.5
--- NOTE | 2019-04-16 | DI.MG.S_ITS ---
BILATERAL DIGITAL SCREENING MAMMOGRAM 3D/2D WITH CAD: 04/16/2019 Comparison is made to exams dated: 12/16/2015 mammogram, 02/05/2017 mammogram, and 03/12/2018 mammogram - [facility]. The tissue of both breasts is predominantly fatty. Current study was also evaluated with a Computer Aided Detection (CAD) system. No significant masses, calcifications, or other findings are seen in either breast. There has been no significant interval change. IMPRESSION: NEGATIVE There is no mammographic evidence of malignancy. A 1 year screening mammogram is recommended. This exam was interpreted at Station ID: [id number]. NOTE: For mammograms, a report in lay terms will be sent to the patient. Approximately 15% of breast malignancies will not be visualized mammographically. In the management of a palpable breast mass, a negative mammogram must not discourage biopsy of a clinically suspicious lesion. Electronically Signed By: Jazmyne bell/francine:04/16/2019 16:06:23 letter sent: Normal Exam ACR BI-RADS Category 1: Negative [id number]
== END ==
PROVIDERS: PCP Internal Medicine; Visit Provider Internal Medicine
DX: Z12.31 Encounter for screening mammogram for malignant neoplasm of breast (principal); M85.852 Other specified disorders of bone density and structure, left thigh; Z78.0 Asymptomatic menopausal state; E07.9 Disorder of thyroid, unspecified; Z82.62 Family history of osteoporosis
CPT/HCPCS: 77063; 77067; 77080

== ENCOUNTER → 2019-04-28 11:54 | Outpatient (CLI) | payer MEDICARE, OTHER, SELFPAY ==
[2018-07-30 13:30] VITALS: BMI 34.5
[2019-04-28 12:45] LABS: Add Manual Diff / Slide Review NO; Basophils Absolute Auto 0 /uL (0-100); Basophils Percent Auto 0.6 % (0-2); Eosinophils Absolute Auto 100 /uL (0-450); Eosinophils Percent Auto 1.4 % (2-4); Hematocrit 40.6 % (36-46); Hemoglobin 13.8 g/dL (12.0-16.0); Lymphocytes Absolute Auto 1300 /uL (1100-4500); Lymphocytes Percent Auto 22.4 % (25-40); Mean Corpuscular HGB Conc 33.9 % (30-36); Mean Corpuscular Volume 94.4 fL (80-100); Monocytes Absolute Auto 500 /uL (0-900); Monocytes Percent Auto 9.2 % (3-14); Neutrophils Absolute Auto 3800 /uL (1500-7000); Neutrophils Percent Auto 66.4 % (50-75); Platelet Count 280 X10^3/uL (150-400); Red Cell Distribution Width 14.6 % (11.6-14.8); White Blood Cell Count 5.7 X10^3/uL (4.5-11.0)
[2019-04-28 12:55] LABS: Blood Urea Nitrogen 14 mg/dL (7-17); Carbon Dioxide 31 mmol/L (22-32); Chloride 103 mmol/L (98-107); Estimated Glomerular Filt Rate > 60.0 mL/min (>60); Glucose 100 mg/dL (80-110); HEMOLYSIS < 15 (0-50); Potassium 4.6 mmol/L (3.4-5.1); Sodium 139 mmol/L (137-145)
[2019-04-28 12:58] LABS: Hemoglobin A1C% w Est Avg Glu 5.2 % (4.0-6.0)
== END ==
PROVIDERS: PCP Internal Medicine; Visit Provider Orthopaedic Surgery
DX: Z01.818 Encounter for other preprocedural examination (principal); Z01.812 Encounter for preprocedural laboratory examination; R73.9 Hyperglycemia, unspecified; N39.0 Urinary tract infection, site not specified
CPT/HCPCS: 36415; 80048; 83036; 85025; 93005

== ENCOUNTER 2019-05-02 13:53 | Observation (INO) | payer MEDICARE, OTHER, SELFPAY ==
[2018-07-30 13:30] VITALS: BMI 34.5
[2019-04-29 14:52] VITALS: BMI 34.5
[2019-05-01] VITALS (12 sets, daily range): BP systolic 98–141; BP diastolic 54–82; PULSE 65–83; RESP 10–20; TEMP 36.3–37.7; O2SAT 92–100; BMI 34.5
[2019-05-01 14:52] LABS: Bacteria Urine None Seen; RBC Urine None Seen (0-5/HPF); WBC Urine None Seen (0-5/HPF)
[2019-05-01] MEDS: LACTATED RINGERS 1,000 ML 42 ML IV ×2 (15:05→18:25)
[2019-05-01 15:38] LABS: Appearance Urine UA CLEAR; Bilirubin Urine UA NEGATIVE (NEGATIVE); Color Urine UA YELLOW; Glucose Urine UA NEGATIVE (Negative); Ketones Urine UA NEGATIVE (NEGATIVE); Leukocyte Esterase Urine UA NEGATIVE (NEGATIVE); Nitrite Urine UA NEGATIVE (Negative); Occult Blood Urine UA NEGATIVE (Negative); Protein Urine UA NEGATIVE (Negative); Specific Gravity Urine UA 1.015 (1.000-1.035); Urobilinogen Urine UA 0.2 E.U./dL (0.2)
[2019-05-01 15:46] LABS: pH Urine UA 7.5 (4.5-8.0)
[2019-05-01 15:55] LABS: Amorphous Sediment Urine 3+; Culture Indicated Urine Cult Not Indicated
[2019-05-01] MEDS: MIDAZOLAM 2 MG/2 ML VIAL IV (16:01)
--- NOTE | 2019-05-01 16:05 | SUR.PREOP ---
Dr Campo explaining to patient plan for nerve block.
--- NOTE | 2019-05-01 16:26 | PM.PREOP ---
Pre-operative Note Interval Note History & Physical reviewed/Exam performed by Physician: Yes Changes to H&P: No
--- NOTE | 2019-05-01 16:26 | PM.OP.1 ---
Operative Date/Time/Diagnoses Date of procedure: 05/01/19 Time of procedure: 16:35 Pre-op diagnosis: right tibia fracture Post-op diagnosis: same Procedure & Clinicians Procedure: Right ankle open reduction internal fixation with plate Same procedure as scheduled: Yes Indications: 69-year-old female with a comminuted right distal tibia fracture with a history of a right total knee above her tibia fracture. Surgeon: Brit Baxter Building Coordinator: Matheus Millan Anesthesia Type: General and Peripheral nerve block Operative Notes Findings: Comminuted fracture, stable fixation, soft bone Closure Type: primary Specimen(s): none sent Prosthetic devices, grafts, tissues, transplants, or devices: Baxter [employer] Nephew evos medial distal plate 15 hole 195 mm, 1 cc DBM putty Estimated Blood Loss (mL): 250 Blood products transfused: none Tourniquet time (min): 94 Procedure in detail: Patient is brought to the operating room. She underwent the induction of a general anesthesia. A preoperative pain block was placed for postoperative pain control. She was given prophylactic antibiotics and prepped and draped in a standard sterile fashion. Tourniquet was inflated to 250 mm of mercury. A medial skin incision was made dissection was carried out through skin and subcutaneous tissues. Gelpi retractors were placed. The saphenous vein was kicked and nerve were carefully identified and protected. Dissection was carried out down to the tibia. She had a comminuted fracture. It was meticulously reduced and held with plate clamps. Plates were placed along the bone and anticipated length was selected it looked like the 15 hole gave good proximal fixation. The plate was carefully placed along the medial aspect of the tibia and then held with several plate clamps. The fracture was then checked and noted to be anatomically reduced. The plate was filled with a combination of nonlocking and locking screws. An interfragmentary screw was placed specifically across the fracture site. There was good compression. The main fracture plane was checked and noted to be stable. A few of the screws were switched from nonlocking 2 locking. The wound was meticulously irrigated with normal saline. Fluoroscopy was used to check the fixation alignment and screw position. The wound was meticulously irrigated with normal saline. There was a small gap along the posterior lower medial aspect of the tibia this was packed with DBM putty. The wound was closed with interrupted Vicryl and skin goldie. Good quality reduction and fixation was achieved. Patient tolerated the procedure well she was transferred recovery room in satisfactory condition. Complications: none Post-operative Condition: stable Disposition: Acute Care Plan for aftercare: 25 lb weight-bearing on the right lower extremity. Okay to use roll about or a knee walker as tolerated. Return to clinic in 10-14 days for wound check and possible staple removal. Placement of a short leg cast and continued restricted weight-bearing for 6 weeks postoperatively.
--- NOTE | 2019-05-01 16:27 | SUR.PREOP ---
Block start time 1600[] . Monitoring initiated and maintained throughout procedure. Oxygen and medications given per anesthesiologist instructions. Patient remained stable throughout procedure, no adverse reactions noted. Block end time [1615
[2019-05-01] MEDS: CEFAZOLIN VIAL 2 GM in SODIUM CHLORIDE 0.9% 100 ML 200 ML IV (16:45)
--- NOTE | 2019-05-01 17:04 | SUR.OPER ---
Supine on padded OR bed, head on pillow, arms secured on padded arm boards at <90 degrees abduction, legs uncrossed, safety belt at thigh, tape over blanket over lower legs.
--- NOTE | 2019-05-01 17:06 | PM.PROC.1 ---
Procedures Date/Time Date of procedure: 05/01/19 Time of procedure: 16:08 Nerve Block Time out performed: Yes Local anesthetic used: lidocaine 2% (w/ eip 10mL, 10mL 0.5 ropivacaine) Location of anesthetic used: adductor canal Amount of anesthesia used (mL): 20 Nerve blocks: femoral (adductor canal) Procedure successful: Yes Patient tolerated procedure: well Complications: none Additional comments: RIGHT Adductor canal block for post operative pain management. R/B discussed. Site marked. Consent verified/signed. Standard ASA monitors. NC O2. Chloroprep. Sterile technique. Femoral A identified medial mid thigh with US. Lidocaine skin wheal. 100mm x 21g Pajunk needle advanced with in-plane US guidance. Negative aspiration. LA injected medial and lateral to femoral artery. Negative aspiration throughout. No pain, no paresthesia with injection. VSS. Tolerated well. To OR.
--- NOTE | 2019-05-01 17:08 | PM.PROC.1 ---
Procedures Date/Time Date of procedure: 05/01/19 Time of procedure: 16:10 Nerve Block Time out performed: Yes Local anesthetic used: other (10mL 2% Lidocaine w/ epi, 10mL 0.5% Ropivacaine) Location of anesthetic used: lateral popliteal Amount of anesthesia used (mL): 20 Nerve blocks: other (sciatic nerve) Procedure successful: Yes Patient tolerated procedure: well Complications: none Additional comments: RIGHT Ultrasound guided lateral popliteal sciatic nerve block for post operative pain management, as discussed with surgeon. Risks, benefits discussed with patient and spouse. Consent verified. Site marked by surgeon. Time out performed. Standard ASA monitors applied, NC O2, 2mg versed. Pt supine. Chloroprep. Sterile US sleeve and gel. Sciatic nerve identified proximal to popliteal fossa, at bifurcation. Lidocaine local skin wheal. 100mm x 21g Pajunk needle advanced with in-plane US guidance to nerve. Negative aspiration. LA injected with intermittent negative aspiration. Good LA spread noted on US. No paresthesias. VSS. Tolerated well.
[2019-05-01] MEDS: ACETAMINOPHEN IV 1,000 MG/100 ML VIAL 400 MG IV (17:35)
[2019-05-01] MEDS: BUPIVACAINE 0.5% W/ EPI (PF) 30 ML VIAL 20 ML INJ (18:47)
[2019-05-01] MEDS: LACTATED RINGERS 1,000 ML 125 ML IV (21:38)
[2019-05-01] MEDS: ASPIRIN EC 81 MG TABLET PO (21:39)
--- NOTE | 2019-05-01 22:30 | PC.NURSE ---
Pt arrived from PACU at approx 2014. Able to slide herself over to bed from stretcher. Reports numbness to RLE but able to wiggle toes and move leg. Toes warm and pink. Cast to RLE; unable to palpate Right pedal pulse. SCD applied to LLE. Denies nausea or pain. Oriented to room and call system. Bed alarm placed on. Tolerating snacks and drinks. Call light within reach.
[2019-05-02] MEDS: CEFAZOLIN 2 GM/100 ML FROZ.PIGGY IV ×2 (01:37→09:19)
[2019-05-02] MEDS: HYDROCODONE/ACET 5/325 TABLET 1 TAB PO ×2 (03:00→06:53)
[2019-05-02 03:12] VITALS: BP 127/75; PULSE 61; RESP 18; TEMP 36.6; O2SAT 100
[2019-05-02] MEDS: LEVOTHYROXINE 75 MCG TABLET PO (06:11)
[2019-05-02 06:13] LABS: Hematocrit 34.8 % (36-46); Hemoglobin 11.9 g/dL (12.0-16.0); Mean Corpuscular HGB Conc 34.2 % (30-36); Mean Corpuscular Hemoglobin 32.1 PG (26-34); Mean Corpuscular Volume 93.7 fL (80-100); Platelet Count 301 X10^3/uL (150-400); Red Blood Cell Count 3.72 X10^6/uL (4.0-5.2); Red Cell Distribution Width 14.2 % (11.6-14.8); White Blood Cell Count 7.1 X10^3/uL (4.5-11.0)
--- NOTE | 2019-05-02 06:37 | PC.NURSE ---
NOC Note: Pt reported pain / and was given 1 norco per orders with good results. Pt has sensation to RLE and foot, good cap refill. Splint with christine wrap is in place. Pt using bed delacruz to void this shift.
[2019-05-02 07:38] VITALS: BP 124/78; PULSE 64; RESP 16; TEMP 36.7; O2SAT 98
[2019-05-02] MEDS: CHOLECALCIFEROL (VITAMIN D3) 1,000 UNIT TABLET 1000 UNIT PO (09:19)
[2019-05-02] MEDS: HYDROMORPHONE 2 MG TABLET PO ×4 (09:19→21:51)
[2019-05-02] MEDS: ASPIRIN EC 81 MG TABLET PO ×2 (09:19→21:51)
[2019-05-02] MEDS: LISINOPRIL 5 MG TABLET PO (09:20)
[2019-05-02] MEDS: POLYETHYLENE GLYCOL 3350 17 GM POWD.PACK PO (09:20)
[2019-05-02] MEDS: SERTRALINE 25 MG TABLET PO (09:21)
--- NOTE | 2019-05-02 11:28 | PM.PNPO.1 ---
Subjective Subjective Date Patient Seen: 05/02/19 Time Patient Seen: 11:28 Interval history: Hospital day 2, postop day 1 following right distal tibial fracture with ORIF by Dr. Baxter. She remained stable postoperatively. Has been getting Vicodin for pain without good pain control. She does have a prescription for Dilaudid already ordered. She has not had any physical therapy yet. She is to be 25 lb weight-bearing to the right leg. Patient does have stairs at home. Exam Vital Signs (past 8 hours): - 05/02/19 07:38 Temperature 98.1 F Pulse Rate 64 Respiratory Rate 16 Blood Pressure 124/78 Pulse Oximetry 98 Oxygen Delivery Method Room Air Oxygen Flow Rate 0 Narrative Exam Narrative: Alert, oriented in no acute distress but appearing uncomfortable lying in bed. Right leg postop but dressing and splint in place without drainage. Good blanching and sensation to toes. Objective Labs Result Diagrams: 05/02/19 05:39 Labs: Laboratory Results - last 24 hr 05/01/19 05/02/19 14:51 05:39 WBC 7.1 RBC 3.72 L Hgb 11.9 L Hct 34.8 L MCV 93.7 MCH 32.1 MCHC 34.2 RDW 14.2 Plt Count 301 Urine Color Yellow Urine Appearance Clear Urine pH 7.5 Ur Specific Steele 1.015 Urine Protein Negative Urine Glucose (UA) Negative Urine Ketones Negative Urine Occult Blood Negative Urine Nitrate Negative Urine Bilirubin Negative Urine Urobilinogen 0.2 Ur Leukocyte Esterase Negative Urine RBC None seen Urine WBC None seen Amorphous Sediment 3+ Urine Bacteria None seen Ur Culture Indicated? Cult not indicated Assessment & Plan Post-op Postoperative Procedures: Procedures Operation Date: 05/01/19 16:45 Actual Procedures Side Surgeon p ORIF Ankle Fracture Right Brit Chava Baxter MD Plan: Will have physical therapy work with her with a roll about and prescription is needed. Will try different pain medication today. Will plan on having patient stay today to get therapy and pain controlled and anticipate discharge home tomorrow if stable.
[2019-05-02 11:30] VITALS: BP 139/78; PULSE 58; RESP 16; TEMP 36.9; O2SAT 96
--- NOTE | 2019-05-02 11:40 | PT.IIE ---
Current Diagnoses Urinary tract infection, site not specified (05/01/19) Other fracture of right lower leg, initial encounter for closed fracture (05/01/19) Surgery Performed Operation Date: 05/01/19 16:45 Actual Procedures p ORIF Ankle Fracture(Right) - Brit Baxter MD Surgical History (This Medical Record has been edited. Action required.) History of arthroplasty of left knee (Acute) Hx of abdominal hysterectomy (Acute) Hx of arthroscopy of right knee (Acute 07/30/18) Hx of cardiac catheterization (Acute 11/30/08) Hx of cholecystectomy (Acute) Medical History (This Medical Record has been edited. Action required.) CAD (coronary artery disease) (Acute) Depression (Acute) Edema (Acute) HTN (hypertension) (Acute) Hydronephrosis (Acute) Hyperlipidemia (Acute) Hypothyroidism (Acute) Palpitations (Acute) Physical Therapy Inpatient Evaluation/Re-Eval M1 PT/OT-IP Prior Functional Status Start: 05/02/19 08:15 Freq: NEEDED Status: Active Protocol: Document 05/02/19 09:35 (Rec: 05/02/19 11:40 [id number]) Medical Review Prior Functional Status Medical History Reviewed Yes Diet/Fluid Consistency Regular Communication no deficits noted. able to make needs known Mobility and Gait Pt was independent for home and community mobility without AD. She was very active and like to walk couple miles a day and enjoy hiking. Pt has been using FWW and a slider underneath her R foot since injury to mobilize at home. Activities of Daily Living and IADL's Independent for ADLs and IADLs Social History Household Members spouse Living Arrangements House Number of Floors (Floors) Two Floors Number of Stairs To Enter/Railing? 3 DEL with no rails 7 steps w B rails + 7 steps with R rail to 2nd floor half [place] steps with 1 side narrow, for FWW placement . Pt's stated he could w /c car transfer by parking his car close to his garage exit (step level is the same as his car ) Home Environment Standard Height Toilet Home Equipment Front Wheel Walker,Straight Cane,Manual Wheelchair,Raised Toilet Seat Without Armrests, Hand Held Shower Employment Status Retired Additional Social History Comment Pt lives with her who is a RN for 4x years. Pt had a R TKA in July this year and was able d/c home the next day . She was very active without using any AD prior to this injury. She usually stays on 2nd floor but she could stay on main floor if needed and can assist in sponge bath since there's a half bathroom only on main floor. Pt also likes sleep on a chair recliner. M2 PT-IP Current Condition Start: 05/02/19 08:15 Freq: NEEDED Status: Active Protocol: Document 05/02/19 09:35 HH (Rec: 05/02/19 11:40 [email or web address]) Physical Therapy Current Condition Current Condition Evaluation Date 05/02/19 Treatment Diagnosis R ankle ORIF s/p a fall, difficulty in walking Onset Date 05/01/19 Precautions Brace Ankle cast up to tibial tuberosity. Will keep the cast x 6 weeks with f/u for wound check by 10-14days. Surgeon Dr Best pt could use knee scooter for mobility. Weight Bearing Status Weight Bearing Status Partial Weight Bearing Allowed Weight Bearing Amount (enter % 25% WB on RLE or #) (%) M3 PT-IP Subjective Start: 05/02/19 08:15 Freq: NEEDED Status: Active Protocol: Document 05/02/19 09:35 HH (Rec: 05/02/19 11:40 [email or web address]) Subjective Physical Therapy Visit Type Type Initial Evaluation Visit Start Time 09:35 Visit Stop Time 10:00 Total Visit Minutes 25 Notes attended session. Number of CORPORATE STRATEGIST Visits 0 Physical Therapy Visit Comments Patient Comments I want to use the bathroom. Patient Goals To return home with Therapy Pain Assessment Pain When Pain Assessed During Mobility Pain Present Pain Present Pain Reported Location Right Knee Intensity 4 Scale Used Numeric (1 - 10) Description Acute Pain Management Techniques Distraction,Timing of Activity with Medications M4 PT-IP Mobility and Gait Start: 05/02/19 08:15 Freq: NEEDED Status: Active Protocol: Document 05/02/19 09:35 (Rec: 05/02/19 11:40 [email or web address]) PT-Bed Mobility Assessment Supine to Sit Supine to Sit Standby Assistance Scooting Scooting to Edge of Bed Standby Assistance PT-Transfer Assessment Sit to and From Stand Sit to and from Stand Minimal Assistance,1 Person Assistance,Use of Upper Extremities Equipment Transfer Assistive Device Gait Belt,Front Wheeled Walker Orthotic/Prosthetic Devices or Brace: Yes Transfers Transfer Destination Bed,Chair,Bedside Commode Transfer Technique lateral scoot with FWW and slider underneath R foot. Transfer Ability Level of Assist Contact Guard Assistance,Use of Upper Extremities Comments Mobility Comments Pt was in bed upon assessment. Pt's at bedside. BP maintained stable at 130s/70s pre and post IE. Capillary refilled, sensation and toes mobility are intact.Educated pt's on her current 25% WB status. Pt completed supine to long sit and pivot herself to L EOB with SBA. She was able to scoot forward and laterally as well. Pt then used her personal rounded slider and placed underneath R foot. She stood up with staggered stance but needed min A, f/b lateral scoot to R and sat on BSC. Pt voided and was able to stand up multiple times with FWW for pericare (CGA). She then transferred to bedside chair on her R side with FWW CGA. Pt was able to maintain WB status and appears safe and steady without LOB. call light was placed within reach. Gait Assessment Comments Gait Comments Did not assess. Stair Climbing Assessment Comments Stair Climbing Comments Did not assess. PT-Balance Assessment Sitting Balance and Reactions Static Sitting Balance Ability Normal Dynamic Sitting Balance Ability Normal Standing Balance and Reactions Static Standing Balance Ability Good Dynamic Standing Balance Ability Good Device Used FWW M5 PT-IP Objective Assessments Start: 05/02/19 08:15 Freq: NEEDED Status: Active Protocol: Document 05/02/19 09:35 (Rec: 05/02/19 11:40 [id number]) Orientation Orientation/Cognition Level of Alertness Alert Orientation Name,Age,Birthday,Month,Date, Year,Day of Week,Place, Situation Safety Awareness Understands Safety Issues Memory Description No Deficits Noted Gross Range of Motion Upper Extremity ROM Assessment Within Functional Limits Lower Extremity ROM Assessment Right Impaired Strength Upper Extremity Strength Assessment Within Functional Limits Lower Extremity Strength Assessment Right Impaired Coordination Assessment Gross Coordination Gross Coordination WNL Sensation Assessment Sensation Gross Sensation WNL Light Touch Intact Proprioception (Position) Intact Muscle Tone Muscle Tone WNL Yes M6 PT-IP Treatment Start: 05/02/19 08:15 Freq: NEEDED Status: Active Protocol: Document 05/02/19 09:35 (Rec: 05/02/19 11:40 [email or web address]) Physical Therapy Treatment Education Education Provided Precautions,Weight Bearing Status,Post-Op Packet,Safety Other Treatments Other Treatment Performed Recommended pt's to acquire knee scooter from [employer]. M7 PT-IP Assessment and Plan Start: 05/02/19 08:15 Freq: NEEDED Status: Active Protocol: Document 05/02/19 09:35 HH (Rec: 05/02/19 11:40 HH [id number]) PT Summary Assessment and Plan Potential Rehabilitation Potential Excellent Status of Condition at Evaluation Stable Summary Impairments Pain,ROM,Strength,Balance,Bed Mobility,Transfers,Gait, Activity Tolerance Assessment Summary Pt is a low complexity s/p POD 1 R ankle ORIF due to a fall. Pt is allowed to 25% WB on RLE for following 6 weeks and recommended to use knee scooter for mobility if needed . Pt did fairly well for PT assessment who was able to use slider to place underneath R foot for BSC and chair trasnfer with standing lateral scooting technique. She overall needed CGA for bed mobility and transfers and CGA <>min A for sit to stand. Pt's will acquire knee scooter this pm so PT will have pt and CG training for scooter use. Expect pt to be d /c home with 's assistance (who is a RN) and home health to improve mobility and strength once pt is medically stable. Goals Bed Mobility Goal Standby Assistance Transfer Goal Standby Assistance,Front Wheeled Walker Gait Goal Standby Assistance,Front Wheel Walker Gait Distance 200 Other Goals gait training with pt and CG with knee scooter. Days to Meet Goals 3 Frequency of Treatment Frequency Of Treatment Twice a Day Treatment Plan Physical Therapy Treatment Plan Bed Mobility Training,Transfer Training,Gait Training, Therapeutic Exercise,Balance Retraining,Post Op Education, Discharge Planning,Hot or Cold Pack,Neuromuscular Re-ed Other Recommendations and Next Treatment gait training with pt and CG Focus with knee scooter Discharge Recommendations PT Discharge Recommendations Home with Assistance,Home Health Equipment Needed for Home Before knee scooter (pt's Discharge will acquire)
[2019-05-02] MEDS: hydrOXYzine pamoate 25 MG CAPSULE PO ×2 (12:01→21:51)
--- NOTE | 2019-05-02 13:25 | CM.DPNOTE ---
Initial Discharge Planning assessment note. SENIOR PRODUCT DEVELOPMENT ENGINEER reviewed EMR and consulted with CM team re: information gained during team rounds. PCP: Dr. Bonita Ruby. Payor: Medicare, [employer]. PT met with pt today and recommends d/c home w/spouse, spouse is able to provide for pt's care needs, they decline the need for Home Health or further DME needs. SENIOR PRODUCT DEVELOPMENT ENGINEER spent time counseling pt/spouse re: the recent traumatic of their son. Both pt/spouse were acutely grieving in the room upon SENIOR PRODUCT DEVELOPMENT ENGINEER arrival. Offered support and discussed specialized resources in available in the community that they may find beneficial, they [facility], however pt's recent leg fracture is being prohibitive in their ability to continue to weekly sessions. Family are well supported, spouse is extremely supportive and continues to remain at pt's bedside offering comfort. No further needs identified at this time, CM will continue to monitor. Discharge Planning/Care Management CM Discharge Assessment Start: 05/02/19 13:08 Freq: Status: Active Protocol: Document 05/02/19 13:08 DPL (Rec: 05/02/19 13:24 DPL [id number]) Discharge Planning Assessment Assigned Heater Engineer Helper Teri Villa, SENIOR PRODUCT DEVELOPMENT ENGINEER DPOA/Assigned Designee Name Ari Lozada Advance Directives? Yes History Provided By Patient,Medical Record Expected Length of Stay 3 Has Patient been admitted in last 30 No days? Prior Living Arrangements House Household Members spouse Type of transporation used prior to Drives own vehicle admit Independent with ADL's Yes Caregiver for Another No Comment N/A Comment Pt has a front wheeled walker, will be getting a scooter for her leg once discharged. Comment D/C home w/ as caregiver. Pt declines the need for Home Health or any other community resources re: her leg recovery. SENIOR PRODUCT DEVELOPMENT ENGINEER spent a significant amount of time with pt/spouse in bereavement counseling specific to her son 's recent traumatic . SENIOR PRODUCT DEVELOPMENT ENGINEER discussed specialized supports in the community to assist her/spouse in healing and recovery from their loss. Barriers to Discharge No Discharge Plan Home Transportation Arrangement Spouse will drive patient home . Pre-Anesthesia Assessment Start: 04/29/19 14:52 Freq: Status: Active Protocol: Document 04/29/19 14:52 CAB (Rec: 04/29/19 15:00 CAB [id number]) Pre-Anesthesia Assessment PAC Comment Surgeon H&P not available at time of assess Patient Information Reviewed Via Chart Review Diagnostic Results BMP/CMP,CBC Comment Labs @ [facility] 04/28/19 Primary Care Provider Lynn Miller Seen Specialist in Last 12 Months Yes Specialist Seen Showroom Consultant,Emergency, Orthopedist Primary Language Afghan Preferred Language Afghan Photographic Restorer Required No Height 152.4 cm Weight 80.286 kg Body Mass Index (BMI) 34.5 Hx Anesthesia Reactions Yes: Hard to wake up, PONV Hx Family Anesthesia Reaction No Hx Malignant Hyperthermia No Hx Blood Transfusion Reaction No Anesthesia Review Requested No Major General No alcohol intake never Smoking Status Never smoker Substance Use Type does not use Pain Present Pain Reported Musculoskeletal Symptoms Abnormal Gait,Deformity, Difficulty Walking,Joint Pain Patient is completely paralyzed or No completely immobile Mental Status Oriented to own ability Is patient on oxygen? No Does patient have WILLETT/SOB No Hx Sleep Apnea No CPAP/BIPAP use not prescribed Currently Taking a Beta Niesha No Hx Chest Pain No Hx SOB No Hx Syncope or Dizziness No Anti-Coagulant Therapy No Has a Showroom Consultant Yes: Dr. Sanderson Cardiac Testing Yes: ECHO 07/22/18, NM Stress Hx Pacemaker/ICD No Pacemaker Rep Required? No Cardiac Clearance Received Not Applicable Comment Prior cardiac records scanned to record Urinary Catheter Present No Hx Urinary Self Catheterization No Diabetes No HgbA1C 5.2 Date 04/28/19 Patient No Lactating No Hx Drug Resistant Organism No Presence of External or Internal Medical No Devices Marital Status Lives With spouse Patient Discharge Plan Description Return Home Do You Have Any Spiritual Beliefs That No May Affect Your HC Choices? Do You Have Any Cultural Practices That No May Affect Your HC Choices? Health Care Proxy/Next of Kin Ari Health Care Proxy Emergency Contact Name Ari Emergency Contact Advance Directives? Yes Power of Button Attaching Machine Operator Yes Power of Button Attaching Machine Operator Name Ari Power of Button Attaching Machine Operator
--- NOTE | 2019-05-02 13:40 | PC.NURSE ---
ASSESS-Pt is A&Ox3, she states that she is having 8/10. Given 2mg of po dialudid and helpful. Pt did complain of pain around 3 hours later at 8/10 too, given 2mg of dilaudid with 1 vistaril as she was complaining of spasm as well. Splint to r.ankle is cdi, Pt has a maximum weight bearing of 25 pounds on this leg. She is using a slider under her heal to help move her leg, and PT has recommended a scooter walker. has purchased this. She has a lot of anxiety and depression as her youngest son committed suicide on Thansg this year and she was the one that found him in his garage. Her was talking to their son the night before in the garage prior to this happening the night before. Pt is able and does talk about how she feels. Called sarah March and he gave an order for prn ativan po q 8 if needed. Pt states that her pain is now under control and she is feeling better. in room and supportive of his . She is able to eat and did work with physical therapy, she is moving well and learning her precautions. Unsure of discharged, they would like to go home tomorrow.
[2019-05-02 15:49] VITALS: BP 128/65; PULSE 60; RESP 16; TEMP 37.2; O2SAT 99
[2019-05-02] MEDS: LORazepam 1 MG TABLET PO (16:15)
--- NOTE | 2019-05-02 16:37 | PT.IPTN ---
Current Diagnoses Urinary tract infection, site not specified (05/02/19) Other fracture of right lower leg, initial encounter for closed fracture (05/02/19) Surgery Performed Operation Date: 05/01/19 16:45 Actual Procedures p ORIF Ankle Fracture(Right) - Brit Baxter MD Physical Therapy Treatment Note M2 PT-IP Current Condition Start: 05/02/19 08:15 Freq: NEEDED Status: Active Protocol: Document 05/02/19 09:35 HH (Rec: 05/02/19 11:40 [email or web address]) Physical Therapy Current Condition Current Condition Evaluation Date 05/02/19 Treatment Diagnosis R ankle ORIF s/p a fall, difficulty in walking Onset Date 05/01/19 Precautions Brace Ankle cast up to tibial tuberosity. Will keep the cast x 6 weeks with f/u for wound check by 10-14days. Surgeon Dr Best pt could use knee scooter for mobility. Weight Bearing Status Weight Bearing Status Partial Weight Bearing Allowed Weight Bearing Amount (enter % 25% WB on RLE or #) (%) M3 PT-IP Subjective Start: 05/02/19 08:15 Freq: NEEDED Status: Active Protocol: Document 05/02/19 14:30 LRN (Rec: 05/02/19 16:36 LRN [id number]) Subjective Physical Therapy Visit Type Type Treatment Note Visit Start Time 14:30 Visit Stop Time 13:00 Total Visit Minutes 30 Notes in attendance Number of SECURITY TRAINER Visits 0 Physical Therapy Visit Comments Patient Comments Pt resting peacefully, agreeable to therapy. States her pain is 7/10, but not due for meds for another 2 hours. Therapy Pain Assessment Pain When Pain Assessed At Rest Pain Present Pain Present Pain Reported M4 PT-IP Mobility and Gait Start: 05/02/19 08:15 Freq: NEEDED Status: Active Protocol: Document 05/02/19 09:35 HH (Rec: 05/02/19 11:40 [id number]) PT-Bed Mobility Assessment Supine to Sit Supine to Sit Standby Assistance Scooting Scooting to Edge of Bed Standby Assistance PT-Transfer Assessment Sit to and From Stand Sit to and from Stand Minimal Assistance,1 Person Assistance,Use of Upper Extremities Equipment Transfer Assistive Device Gait Belt,Front Wheeled Walker Orthotic/Prosthetic Devices or Brace: Yes Transfers Transfer Destination Bed,Chair,Bedside Commode Transfer Technique lateral scoot with FWW and slider underneath R foot. Transfer Ability Level of Assist Contact Guard Assistance,Use of Upper Extremities Comments Mobility Comments Pt was in bed upon assessment. Pt's at bedside. BP maintained stable at 130s/70s pre and post IE. Capillary refilled, sensation and toes mobility are intact.Educated pt's on her current 25% WB status. Pt completed supine to long sit and pivot herself to L EOB with SBA. She was able to scoot forward and laterally as well. Pt then used her personal rounded slider and placed underneath R foot. She stood up with staggered stance but needed min A, f/b lateral scoot to R and sat on BSC. Pt voided and was able to stand up multiple times with FWW for pericare (CGA). She then transferred to bedside chair on her R side with FWW CGA. Pt was able to maintain WB status and appears safe and steady without LOB. call light was placed within reach. Gait Assessment Comments Gait Comments Did not assess. Stair Climbing Assessment Comments Stair Climbing Comments Did not assess. PT-Balance Assessment Sitting Balance and Reactions Static Sitting Balance Ability Normal Dynamic Sitting Balance Ability Normal Standing Balance and Reactions Static Standing Balance Ability Good Dynamic Standing Balance Ability Good Device Used FWW M5 PT-IP Objective Assessments Start: 05/02/19 08:15 Freq: NEEDED Status: Active Protocol: Document 05/02/19 09:35 HH (Rec: 05/02/19 11:40 [id number]) Orientation Orientation/Cognition Level of Alertness Alert Orientation Name,Age,Birthday,Month,Date, Year,Day of Week,Place, Situation Safety Awareness Understands Safety Issues Memory Description No Deficits Noted Gross Range of Motion Upper Extremity ROM Assessment Within Functional Limits Lower Extremity ROM Assessment Right Impaired Strength Upper Extremity Strength Assessment Within Functional Limits Lower Extremity Strength Assessment Right Impaired Coordination Assessment Gross Coordination Gross Coordination WNL Sensation Assessment Sensation Gross Sensation WNL Light Touch Intact Proprioception (Position) Intact Muscle Tone Muscle Tone WNL Yes M6 PT-IP Treatment Start: 05/02/19 08:15 Freq: NEEDED Status: Active Protocol: Document 05/02/19 14:30 LRN (Rec: 05/02/19 16:36 LRN [id number]) Physical Therapy Treatment Exercises Exercises Gluteal Sets,Quad Sets,Heel Slides Education Education Provided Weight Bearing Status Other Treatments Other Treatment Performed Pt had scooter renting . Scooter adjusted for pt height . Training of pt and spouse on use of scooter with precautions of use due to very poor brake ability both at handrail and feet. M7 PT-IP Assessment and Plan Start: 05/02/19 08:15 Freq: NEEDED Status: Active Protocol: Document 05/02/19 14:30 LRN (Rec: 05/02/19 16:36 LRN [id number]) PT Summary Assessment and Plan Potential Rehabilitation Potential Excellent Status of Condition at Evaluation Stable Summary Impairments Pain,ROM,Strength,Balance,Bed Mobility,Transfers,Gait, Activity Tolerance Assessment Summary Pt was able to transfer OOB with assist of RLE. She was able to stand at bedside and position onto scooter with kyara batres. Pt spouse was present for demonstrating assist getting pt on/off scooter. Pt spouse was able to assist in set up of scooter for proper height of pt. Pt did very well with transferring into standing and with use of scooter. Goals Bed Mobility Goal Minimal Assistance Transfer Goal Standby Assistance,Front Wheeled Walker Gait Goal Standby Assistance,Front Wheel Walker Gait Distance 200 Other Goals gait training with pt and CG with knee scooter. Days to Meet Goals 3 Frequency of Treatment Frequency Of Treatment Twice a Day Treatment Plan Physical Therapy Treatment Plan Bed Mobility Training,Transfer Training,Gait Training, Therapeutic Exercise,Balance Retraining,Post Op Education, Discharge Planning,Hot or Cold Pack,Neuromuscular Re-ed Other Recommendations and Next Treatment gait and scooter training with Focus pt and CG with knee scooter. Recommendations To Nursing Amount of Assist Needed 1 Person Assist Discharge Recommendations PT Discharge Recommendations Home with Assistance,Home Health Equipment Needed for Home Before knee scooter (pt's Discharge will acquire another one that has better brake mechanism)
[2019-05-02] MEDS: ACETAMINOPHEN 325 MG TABLET 650 MG PO (21:51)
[2019-05-02 22:17] VITALS: BP 118/65; PULSE 68; RESP 16; TEMP 36.6; O2SAT 96
[2019-05-03 00:39] VITALS: BP 96/63; PULSE 67; RESP 16; TEMP 37.1; O2SAT 95
[2019-05-03] MEDS: HYDROMORPHONE 2 MG TABLET PO ×3 (00:40→09:02)
[2019-05-03] MEDS: LEVOTHYROXINE 75 MCG TABLET PO (05:38)
[2019-05-03 06:00] VITALS: BP 117/71; PULSE 72; RESP 18; TEMP 36.7; O2SAT 98
[2019-05-03 08:00] VITALS: BP 116/60; PULSE 64; RESP 16; TEMP 37; O2SAT 98
[2019-05-03] MEDS: ASPIRIN EC 81 MG TABLET PO (09:02)
[2019-05-03] MEDS: CHOLECALCIFEROL (VITAMIN D3) 1,000 UNIT TABLET 1000 UNIT PO (09:02)
[2019-05-03] MEDS: LISINOPRIL 5 MG TABLET PO (09:03)
[2019-05-03] MEDS: SERTRALINE 25 MG TABLET PO (09:03)
[2019-05-03] MEDS: SODIUM CHLORIDE 0.9% FLUSH 10 ML IV (09:03)
[2019-05-03] MEDS: POLYETHYLENE GLYCOL 3350 17 GM POWD.PACK PO (09:03)
--- NOTE | 2019-05-03 10:58 | P.DS_ITS ---
History of Present Illness History of Present Illness Date Patient Seen: 05/03/19 Time Patient Seen: 10:58 Chief complaint: [id number] ORIF RIGHT TIBIA *OPB*/LAB Narrative: 69-year-old female with a comminuted right distal tibia fracture with a history of a right total knee above her tibia fracture. Discharge Providers Provider Date of admission: 05/02/19 13:53 Discharge Date: 05/03/19 Primary care physician: Bonita Ruby MD Consults: 05/01/19 20:59 Consult to Discharge Planning Routine Comment: Consult to Physical Therapy Evaluate & Treat Comment: Physician Instructions: Evaluate and Treat Consult to Respiratory Therapy Evaluate & Treat Comment: Physician Instructions: Evaluate and treat 05/02/19 11:28 Consult to Physical Therapy Evaluate & Treat Comment: Fit for roll about for ambulation Physician Instructions: Evaluate and Treat 05/02/19 11:32 Consult to Physical Therapy Evaluate & Treat Comment: 25 lb weight-bearing right leg Physician Instructions: Evaluate and Treat Discharge provider: Daxa Hernandez PA-C Summary Hospital Course Discharge Diagnosis: Thyroid disease Osteoporosis Obesity Heart palpitations Heart murmur Arthritis Hospital Course: Joann admitted for ORIF of comminuted right distal tibia fracture with a history of a right total knee above her tibia fracture with Dr. Baxter. On postop day 2 patient was ready to discharge home. Postop day 1 she had significant mobilization and pain control issues. Her pain is now well controlled. She is taking ASA 81 mg b.i.d. for DVT prophylaxis. She is aware of her 25 lb weight-bearing limit. She has worked with physical therapy t oughout her stay. She has a [employer] scooter. She is eating and voiding without difficulty or assistance. Exam Vital Signs (past 8 hours): - 05/03/19 06:00 05/03/19 08:00 Temperature 98.0 F 98.6 F Pulse Rate 72 64 Respiratory Rate 18 16 Blood Pressure 117/71 116/60 Pulse Oximetry 98 98 Oxygen Delivery Method Room Air Oxygen Flow Rate 0 Narrative Exam Narrative: Patient lying in bedside chair in no acute distress. She is alert and oriented x3. Calves are soft, compressible, nontender bilaterally. She is able to wiggle her right toes. Splint is well fitting. Sensation intact to light touch throughout bilateral lower extremities. Her pain is well controlled this morning with Dilaudid, [place], and Vistaril. She is aware she needs to take ASA b.i.d.. Objective Labs Result Diagrams: 05/02/19 05:39 Discharge Plan Discharge Plan Patient Disposition: Home Discharge orders & Medications Prescriptions: New hydroxyzine pamoate 25 mg Capsule 25 mg PO Q6HR PRN (Reason: muscle spasms) Qty: 20 RF: 0 hydrocodone-acetaminophen 5-325 mg Tablet 2 tab PO Q4HR PRN (Reason: Pain, Moderate (4-6)) Qty: 50 RF: 0 hydromorphone [Dilaudid] 2 mg tablet 2 mg PO Q4-6H PRN (Reason: pain) Qty: 40 RF: 0 Continued levothyroxine 75 mcg Tablet 75 mcg PO DAILY Qty: 0 RF: 0 cholecalciferol (vitamin D3) 1,000 unit Capsule 1,000 unit PO DAILY Qty: 0 RF: 0 lisinopril 5 mg Tablet 5 mg PO DAILY RF: 0 acetaminophen 325 mg Tablet 975 mg PO TID Qty: 0 RF: 0 aspirin 81 mg Tablet,Delayed Release (Dr/Ec) 81 mg PO BID Qty: 0 RF: 0 sertraline [Zoloft] 25 mg Tablet 25 mg PO DAILY RF: 0 Discontinued oxycodone 5 mg Tablet 5 mg PO Q4-6H PRN (Reason: Pain, Moderate (4-6)) Qty: 0 RF: 0 hydromorphone 2 mg Tablet 2 mg PO Q3H PRN (Reason: Pain, Severe (7-10)) Qty: 20 RF: 0 hydrocodone-acetaminophen 5-325 mg Tablet 1 tab PO Q4-6H PRN (Reason: Pain, Severe) RF: 0 Follow up/Referrals: Brit Baxter MD [Physician] - (CALL SUNDAY TO SCHEDULE A FOLLOW APPT TO BE SEEN IN 10-14 DAYS) Bonita Ruby MD [Primary Care Provider] - Diet/Activity/Treatments Activity: Plan for aftercare: 25 lb weight-bearing on the right lower extremity. Okay to use roll about or a knee walker as tolerated. Return to clinic in 10- 14 days for wound check and possible staple removal. Placement of a short leg cast and continued restricted weight-bearing for 6 weeks postoperatively. Visit Report/Discharge Packet Instructions: DI for Constipation, How to Prevent Falls, DI for Open Reduction Internal Fixation Surgery Discharge Data Primary Care Provider: Bonita Ruby Attending Provider: Brit Baxter Admit Date/Time: 05/02/19 13:53 Discharges patient from system. Discharge Date/Time: 05/03/19 11:06
--- NOTE | 2019-05-03 11:03 | PC.NURSE ---
IV removed. Discharge instructions and home care handouts reviewed with patient and her . They state understanding and have no further questions or concerns. PRescriptions sent with patient to fill at pharmacy of choice. Patient's plans to call Dr. Baxter's office on Sunday to schedule a follow up appointment to be seen in 10-14 days. Patient instructed to call Dr. Baxter's office for any questions or concerns, and to report any symptoms of infection such as fever, nausea/vomiting, unusual drainage or pain. Instructed to seek emergency care for an emergency. Escorted out via wheelchair by AIR ANALYSIS ENGINEERING TECHNICIAN to be discharged to home with .
== END 2019-05-03 11:06 | disposition home or self-care (01) ==
LOC: OR 14:16
PROVIDERS: Admitting Provider Physician Assistant; Family Provider Internal Medicine; PCP Internal Medicine; Visit Provider Orthopaedic Surgery
PROC: 0SSF04Z Reposition Right Ankle Joint with Internal Fixation Device, Open Approach (ICD-10-PCS; CPT 27758; principal; 2019-05-01 16:45)
DX: S82.254A Nondisplaced comminuted fracture of shaft of right tibia, initial encounter for closed fracture (principal); W00.0XXA Fall on same level due to ice and snow, initial encounter; G89.18 Other acute postprocedural pain; M81.0 Age-related osteoporosis without current pathological fracture; Z96.651 Presence of right artificial knee joint; Z68.35 Body mass index [BMI] 35.0-35.9, adult; E66.9 Obesity, unspecified; I25.10 Atherosclerotic heart disease of native coronary artery without angina pectoris; I10 Essential (primary) hypertension
CPT/HCPCS: 27758; 36415; 64445; 64447; 81001; 85027; 97110; 97116; 97161; 97530; G0378; J0131; J0690; J1100; J2250; J2405; J2704; J3010

== ENCOUNTER → 2019-06-30 14:40 | Outpatient (ROUT) | payer MEDICARE, OTHER, SELFPAY ==
[2019-05-01 20:53] VITALS: BMI 34.5
[2019-06-30 16:32] LABS: TSH w/ Reflex to FT4 0.27 uIU/mL (0.47-4.68)
[2019-06-30 16:58] LABS: Free T4, Direct Thyroxine 0.95 ng/dL (0.78-2.19)
== END ==
PROVIDERS: Family Provider Internal Medicine; PCP Internal Medicine; Visit Provider Internal Medicine
DX: E03.9 Hypothyroidism, unspecified (principal)
CPT/HCPCS: 84439; 84443

== ENCOUNTER → 2019-07-12 08:19 | Outpatient (CLI) | payer MEDICARE, OTHER, SELFPAY ==
[2019-05-01 20:53] VITALS: BMI 34.5
--- NOTE | 2019-07-12 | DI.MRI.S_ITS ---
PROCEDURE: MR HEAD/BRAIN WO CON INDICATIONS: Other specified hypothyroidism TECHNIQUE: Non-contrast axial T1 spin echo, axial T2 fast spin echo, sagittal and axial FLAIR, coronal T2 fast spin echo, axial gradient echo, axial diffusion and ADC through the brain. COMPARISON: None. FINDINGS: Image quality: Excellent. CSF spaces: Ventricles appear symmetric in size and shape. Basal cisterns are patent. No extra-axial fluid collections. Brain: No intracranial bleeds or mass effects. There is cerebral volume loss for age. There are periventricular and deep white matter chronic small vessel ischemic changes. Brainstem appears normal. Diffusion-weighted images show no acute ischemic insults. No chronic ischemic insults. Normal intravascular flow voids are present. Skull and face: Calvarial bone marrow is normal in signal. Orbits are normal. Sinuses: Sinuses and mastoids are clear. IMPRESSION: Few scattered small white matter changes, probably represent chronic microvascular ischemic disease, versus statistically less likely demyelination or other infectious, inflammatory, neurodegenerative etiology, technically nonspecific. Dictated by: Nicko Flores M.D. on 07/14/2019 at 9:28 Approved by: Nicko Flores M.D. on 07/14/2019 at 9:32
== END ==
PROVIDERS: Family Provider Internal Medicine; PCP Internal Medicine; Referring Provider Internal Medicine; Visit Provider Internal Medicine
DX: E03.8 Other specified hypothyroidism (principal)
CPT/HCPCS: 70551

== ENCOUNTER → 2020-05-26 | Outpatient (CLI) | payer MEDICARE, OTHER, SELFPAY ==
[2019-05-01 20:53] VITALS: BMI 34.5
--- NOTE | 2020-05-26 17:19 | DI.MG.S_ITS ---
BILATERAL DIGITAL SCREENING MAMMOGRAM 3D/2D WITH CAD: 05/26/2020 CLINICAL: Routine screening. Comparison is made to exams dated: 04/16/2019 mammogram - [facility], 03/12/2018 mammogram, and 02/05/2017 mammogram - [facility]. The tissue of both breasts is predominantly fatty. Current study was also evaluated with a Computer Aided Detection (CAD) system. No significant masses, calcifications, or other findings are seen in either breast. There has been no significant interval change. IMPRESSION: NEGATIVE There is no mammographic evidence of malignancy. A 1 year screening mammogram is recommended. This exam was interpreted at Station ID: [id number]. NOTE: For mammograms, a report in lay terms will be sent to the patient. Approximately 15% of breast malignancies will not be visualized mammographically. In the management of a palpable breast mass, a negative mammogram must not discourage biopsy of a clinically suspicious lesion. Electronically Signed By: Miguel nelson/francine:05/27/2020 08:41:45 letter sent: Normal Exam ACR BI-RADS Category 1: Negative [id number]
== END ==
LOC: MAMMO 17:19
PROVIDERS: Family Provider Internal Medicine; PCP Internal Medicine; Referring Provider Internal Medicine; Visit Provider Internal Medicine
DX: Z12.31 Encounter for screening mammogram for malignant neoplasm of breast (principal)
CPT/HCPCS: 77063; 77067

== ENCOUNTER 2020-11-15 20:45 | Emergency (ER) | payer MEDICARE, OTHER, SELFPAY ==
[2019-05-01 20:53] VITALS: BMI 34.5
[2020-11-15 20:53] VITALS: BP 139/89; PULSE 79; RESP 17; TEMP 36.6; O2SAT 97; BMI 36.1
--- NOTE | 2020-11-15 22:20 | ED.EAR ---
HPI - Ear Problem General Chief complaint: Ear Stated complaint: Bug in ear Time Seen by Provider: 11/15/20 20:49 Source: patient Mode of arrival: Ambulatory Limitations: no limitations History of Present Illness HPI Narrative: 70-year-old female nonsmoker with noncontributory medical history presents with a chief complaint of feeling as if there is a bug in her left ear. She states it feels plugged, she has some discomfort in her left ear and feels like something is swishing around. She denies any injury or trauma. She denies any runny nose, sneezing or other upper respiratory complaints. She has had no fever or chills. She denies any drainage. She did try putting some oil in her ear to see if it might help, which it did not. She denies chest pain or shortness of breath. She has no nausea, vomiting or diarrhea. She is otherwise well and free of complaint MD Complaint: ear pain and foreign body Location: left ear Duration: constant Severity: mild Relieving factors: nothing Exacerbating factors: nothing Discharge from ear: no Treatment prior to arrival: eardrops Related Data Home Medications Medication Instructions Recorded Confirmed cholecalciferol (vitamin D3) 1,000 unit PO DAILY #0 01/01/13 05/01/19 levothyroxine 75 mcg PO DAILY #0 01/01/13 05/01/19 lisinopril 5 mg PO DAILY 07/30/18 05/01/19 sertraline [Zoloft] 25 mg PO DAILY 05/01/19 05/01/19 Previous Rx's Medication Instructions Recorded acetaminophen 975 mg PO TID #0 tab 07/30/18 aspirin 81 mg PO BID #0 tab 07/30/18 hydrocodone-acetaminophen 2 tab PO Q4HR PRN #50 tab 05/03/19 hydromorphone [Dilaudid] 2 mg PO Q4-6H PRN #40 tab 05/03/19 hydroxyzine pamoate 25 mg PO Q6HR PRN #20 cap 05/03/19 Allergies Allergy/AdvReac Type Severity Reaction Status Date / Time Sulfa (Sulfonamide AdvReac Severe Vomiting Verified 11/15/20 20:55 Antibiotics) erythromycin base AdvReac Mild Verified 11/15/20 20:55 [From Erythrocin] estrogens, conjugated AdvReac Unknown Palpitation Verified 11/15/20 20:55 [From [facility]] s Review of Systems Constitutional Constitutional: Denies chills, Denies fatigue, Denies fever(s), Denies frequent falls, Denies lethargy and Denies weakness Eyes Eyes: Denies change in vision, Denies eye discharge, Denies irritation and Denies loss of vision ENT Ears, Nose, Mouth, and Throat: Denies change in voice, Denies dizziness, Denies neck pain, Denies sore throat and Denies throat swelling Comments: Possible foreign body left ear Cardiovascular Cardiovascular: Denies chest pain, Denies irregular heart rhythm, Denies lightheadedness, Denies palpitations, Denies dyspnea, Denies dyspnea on exertion and Denies orthopnea Respiratory Respiratory: Denies cough, Denies dyspnea, Denies dyspnea on exertion and Denies wheezing Gastrointestinal Gastrointestinal: Denies abdominal pain, Denies change in bowel habits, Denies diarrhea, Denies nausea and Denies vomiting Musculoskeletal Musculoskeletal: Denies neck pain and Denies numbness Integumentary/Breasts Skin/Breast: Denies pruritus, Denies erythema, Denies rash and Denies wounds Neurologic Neurologic: Denies behavioral changes, Denies confusion, Denies dizziness, Denies frequent falls, Denies loss of vision, Denies numbness and Denies weakness Psychiatric Psychiatric: Denies anxiety, Denies behavioral changes, Denies confusion, Denies depression, Denies homicidal ideation and Denies suicidal ideation Endocrine Endocrine: Denies fatigue, Denies flushing and Denies palpitations Hematologic/Lymphatic Hematologic/Lymphatic: Denies easy bruising Allergic/Immunologic Allergic/Immunologic: Denies urticaria, Denies throat swelling and Denies wheezing Patient History Medical History CAD (coronary artery disease) Depression Edema HTN (hypertension) Hydronephrosis Hyperlipidemia Hypothyroidism Palpitations Surgical History History of arthroplasty of left knee Hx of abdominal hysterectomy Hx of arthroscopy of right knee (07/30/18) Hx of cardiac catheterization (11/30/08) Hx of cholecystectomy Social History household members: spouse Smoking Status: Never smoker alcohol intake: never Smoking Status: Never smoker Alcohol type: other Substance Use Type: does not use Exam Narrative Exam Narrative: GEN: AOx3 and in mild distress EYES: Pupils are equal, round, and reactive to light and accommodation. Extraoccular muscles are intact bilaterally. There is no subconjunctival hemorrhage or exudate. ENT: Left tympanic membrane flat, clear, normal cone of light, no effusion, erythema. External auditory canal without erythema or swelling, however the inferior 3rd appears to be bruised without bleeding. No foreign body or insect noted. Right tympanic membrane clear, flat with normal landmarks. Posterior pharynx without edema, exudate or significant postnasal drip. No anterior lymphadenopathy CHEST: Lungs are clear to auscultation bilaterally and free of wheezes, rales, or rhonchi. Heart rate is regular rhythm, there are no murmurs, clicks, rubs, or gallops. There is no chest wall tenderness. ABD: Abdomen is soft and nontender. There is no guarding or rebound. Bowel sounds are normal in all 4 quadrants. There is no mass or organomegaly. EXT: Full painless ROM of all extremities with no loss of sensation or strength. SKIN: Warm, pink, and dry. No erythema or rash Initial Vital Signs Initial Vital Signs: Vital Signs Temperature 97.9 F 11/15/20 20:53 Pulse Rate 79 11/15/20 20:53 Respiratory Rate 17 11/15/20 20:53 Blood Pressure 139/89 11/15/20 20:53 Pulse Oximetry 97 11/15/20 20:53 Course Orders Ordered: Discontinued Medications Lidocaine HCl (Lidocaine Viscous 2% 100 Ml Solution) 10 ml MM NOW ONE Stop: 11/15/20 20:49 Last Admin: 11/15/20 22:36 Dose: Not Given Documented by: KRISTEN Ofloxacin (Ofloxacin 0.3% Ophth 5 Ml) 1 drops EYE-LEFT NOW ONE Stop: 11/15/20 22:28 Last Admin: 11/15/20 23:17 Dose: 1 drop Documented by: KRISTEN Vital Signs Vital signs: Vital Signs - 8 hr 11/15/20 23:29 Pulse Rate 60 Respiratory Rate 14 Blood Pressure 165/87 H Pulse Oximetry 97 Medical Decision Making MDM Narrative Medical decision making narrative: No evidence of foreign body noted on exam, tympanic membranes intact and no concern for otitis media. There is some it inflammation and ecchymosis of the inferior portion of the left external auditory canal, question traumatic injury versus atypical presentation of infection, this is discussed with the patient and she is given ofloxacin drops. Return precautions given and questions answered to her apparent satisfaction Discharge Plan Departure Patient Disposition: Home Clinical Impression: Otitis externa Qualifiers: Otitis externa type: hemorrhagic Chronicity: acute Laterality: left Qualified Code(s): H60.322 - Hemorrhagic otitis externa, left ear Instructions: DI for Otitis Externa Activity Restrictions/Additional Instructions: *You have been diagnosed with [Left ear pain, no obvious foreign body ] *What to do: *Please continue to take your regular medications as directed. [ ] New medication prescriptions sent to your pharmacy: [ ] [ ] New medication written as a paper prescription [x ] New medications given (please use 5 drops in left ear daily for the next week) *Please follow up with your primary care provider in 2-3 days, call for an appointment. Let them know you were seen in the Emergency Department and that we ask that you be seen in follow up. We will electronically transmit a record of today's note if your PCP is in our system *If you do not have a primary care provider please contact the [facility] Resource line at [phone]. They will ask some questions about your medical history and help get you set up with a doctor in the community. *Return to Emergency Department if you should have any new, worsening or concerning symptoms, such as [fever greater than 101 F, shaking chills, worsening pain, persistent vomiting or other bothersome symptoms] Prescriptions: No Action levothyroxine 75 mcg Tablet 75 mcg PO DAILY Qty: 0 RF: 0 cholecalciferol (vitamin D3) 1,000 unit Capsule 1,000 unit PO DAILY Qty: 0 RF: 0 lisinopril 5 mg Tablet 5 mg PO DAILY RF: 0 acetaminophen 325 mg Tablet 975 mg PO TID Qty: 0 RF: 0 aspirin 81 mg Tablet,Delayed Release (Dr/Ec) 81 mg PO BID Qty: 0 RF: 0 sertraline [Zoloft] 25 mg Tablet 25 mg PO DAILY RF: 0 hydroxyzine pamoate 25 mg Capsule 25 mg PO Q6HR PRN (Reason: muscle spasms) Qty: 20 RF: 0 hydrocodone-acetaminophen 5-325 mg Tablet 2 tab PO Q4HR PRN (Reason: Pain, Moderate (4-6)) Qty: 50 RF: 0 hydromorphone [Dilaudid] 2 mg tablet 2 mg PO Q4-6H PRN (Reason: pain) Qty: 40 RF: 0 Referrals: Bonita Ruby MD [Primary Care Provider] -
[2020-11-15] MEDS: OFLOXACIN 0.3% OPHTH 5 ML 1 DROPS EYE-LEFT (23:17)
--- NOTE | 2020-11-15 23:27 | PC.NURSE ---
patient heard fluttering in her left ear and felt like she had a bug in her ear.
[2020-11-15 23:29] VITALS: BP 165/87; PULSE 60; RESP 14; O2SAT 97
== END 2020-11-15 23:31 | disposition home or self-care (01) ==
PROVIDERS: Emergency Provider Emergency Medicine; Family Provider Internal Medicine; PCP Internal Medicine
DX: H60.322 Hemorrhagic otitis externa, left ear (principal)
CPT/HCPCS: 99282

== ENCOUNTER → 2020-12-09 12:08 | Outpatient (CLI) | payer MEDICARE, OTHER, SELFPAY ==
[2019-05-01 20:53] VITALS: BMI 34.5
== END ==
PROVIDERS: Family Provider Internal Medicine; PCP Internal Medicine; Referring Provider Internal Medicine; Visit Provider Internal Medicine
DX: M81.0 Age-related osteoporosis without current pathological fracture (principal); E07.9 Disorder of thyroid, unspecified; Z82.62 Family history of osteoporosis
CPT/HCPCS: 77080

== ENCOUNTER → 2021-05-30 08:10 | Outpatient (CLI) | payer MEDICARE, OTHER, SELFPAY ==
[2019-05-01 20:53] VITALS: BMI 34.5
--- NOTE | 2021-05-30 | DI.MG.S_ITS ---
BILATERAL DIGITAL SCREENING MAMMOGRAM 3D/2D WITH CAD: 05/30/2021 CLINICAL: Routine screening. Comparison is made to exams dated: 05/26/2020 mammogram, 04/16/2019 mammogram - [facility], and 03/12/2018 mammogram - [facility]. The tissue of both breasts is predominantly fatty. Current study was also evaluated with a Computer Aided Detection (CAD) system. There is a possible developing oval asymmetry in the right breast posterior depth medial region seen on the craniocaudal view only. This is increased in size. No other significant masses, calcifications, or other findings are seen in either breast. IMPRESSION: INCOMPLETE: NEEDS ADDITIONAL IMAGING EVALUATION The possible developing oval asymmetry in the right breast is indeterminate. Additional views with possible ultrasound are recommended. This exam was interpreted at Station ID: [id number]. NOTE: For mammograms, a report in lay terms will be sent to the patient. Approximately 15% of breast malignancies will not be visualized mammographically. In the management of a palpable breast mass, a negative mammogram must not discourage biopsy of a clinically suspicious lesion. Electronically Signed By: Sasha dillon/francine:05/30/2021 10:13:50 letter sent: Additional Imaging Needed ACR BI-RADS Category 0: Incomplete [id number]
== END ==
PROVIDERS: Family Provider Internal Medicine; PCP Internal Medicine; Referring Provider Internal Medicine; Visit Provider Internal Medicine
DX: Z12.31 Encounter for screening mammogram for malignant neoplasm of breast (principal)
CPT/HCPCS: 77063; 77067

== ENCOUNTER → 2021-06-24 08:05 | Outpatient (CLI) | payer MEDICARE, OTHER, SELFPAY ==
[2019-05-01 20:53] VITALS: BMI 34.5
--- NOTE | 2021-06-24 | DI.US.S_ITS ---
ULTRASOUND OF RIGHT BREAST: 06/24/2021 CLINICAL: Patient returns today to evaluate a focal asymmetry in the right breast. Comparison is made to exams dated: 06/24/2021 mammogram, 05/30/2021 mammogram, 05/26/2020 mammogram, and 04/16/2019 mammogram - [facility]. Color flow and real-time ultrasound of the right breast were performed. Granado scale images of the real-time examination were reviewed. No abnormality which corresponds with the mammographic abnormality is seen. IMPRESSION: BENIGN There is no sonographic evidence of malignancy. There is no abnormality seen in the right breast to correspond with the mammography finding in the medial aspect, however, analysis of the tomograms from 05/26/2020 compared to most recent screening mammogram of 05/30/2021 demonstrates no interval change in the asymmetry, which is therefore benign. Recommend return to annual screening mammogram. This exam was interpreted at Station ID: [id number]. Electronically Signed By: Yan Sheikh acr/:06/24/2021 10:20:22 letter sent: Normal Exam Ultrasound BI-RADS: 2 Benign
--- NOTE | 2021-06-24 | DI.MG.S_ITS ---
UNILATERAL RIGHT DIGITAL DIAGNOSTIC MAMMOGRAM 3D/2D WITH ADDITIONAL VIEWS: 06/24/2021 CLINICAL: Additional evaluation requested from prior study. Comparison is made to exams dated: 05/30/2021 mammogram, 05/26/2020 mammogram, and 04/16/2019 mammogram - [facility]. The tissue of right breast is predominantly fatty. There is a stable oval asymmetry in the right breast posterior depth medial region seen on the craniocaudal view only. Comparing to multiple from 05/30/2021 2 the geo 4 05/26/2020, the asymmetry is unchanged in size and appearance. No other significant masses or calcifications are seen in the breast. IMPRESSION: INCOMPLETE: NEEDS ADDITIONAL IMAGING EVALUATION The stable oval asymmetry in the right breast is indeterminate. An ultrasound is recommended to further evaluate. This exam was interpreted at Station ID: [id number]. NOTE: For mammograms, a report in lay terms will be sent to the patient. Approximately 15% of breast malignancies will not be visualized mammographically. In the management of a palpable breast mass, a negative mammogram must not discourage biopsy of a clinically suspicious lesion. Electronically Signed By: Yan Sheikh acr/:06/24/2021 08:53:26 ACR BI-RADS Category 0: Incomplete [id number]
== END ==
PROVIDERS: Family Provider Internal Medicine; PCP Internal Medicine; Referring Provider Internal Medicine; Visit Provider Internal Medicine
DX: R92.8 Other abnormal and inconclusive findings on diagnostic imaging of breast (principal); N64.89 Other specified disorders of breast
CPT/HCPCS: 76642; 77065; G0279

== ENCOUNTER → 2022-06-27 14:22 | Outpatient (CLI) | payer MEDICARE, OTHER, SELFPAY ==
[2019-05-01 20:53] VITALS: BMI 34.5
--- NOTE | 2022-06-27 | DI.MG.S_ITS ---
BILATERAL DIGITAL SCREENING MAMMOGRAM 3D/2D WITH CAD: 06/27/2022 CLINICAL: Routine screening. Comparison is made to exams dated: 06/24/2021 mammogram, 05/30/2021 mammogram, 05/26/2020 mammogram, and 04/16/2019 mammogram - [facility]. Both breasts are almost entirely fatty (category a/<25% glandular tissue). Current study was also evaluated with a Computer Aided Detection (CAD) system. No significant masses, calcifications, or other findings are seen in either breast. There has been no significant interval change. IMPRESSION: NEGATIVE There is no mammographic evidence of malignancy. A 1 year screening mammogram is recommended. Based on the Tyrer Cuzick model (a risk assessment model) the patient's lifetime risk is 2.2% and her 10 year risk is 1.5%. According to the ACR, ACS, and NCCN guidelines, an annual breast MRI exam along with mammogram is recommended if the patient's lifetime risk is 20% or greater. This exam was interpreted at Station ID: [id number]. NOTE: For mammograms, a report in lay terms will be sent to the patient. Approximately 15% of breast malignancies will not be visualized mammographically. In the management of a palpable breast mass, a negative mammogram must not discourage biopsy of a clinically suspicious lesion. Electronically Signed By: Sasha dillon/francine:06/27/2022 16:30:43 letter sent: Normal Exam ACR BI-RADS Category 1: Negative [id number]
== END ==
PROVIDERS: PCP Internal Medicine; Referring Provider Internal Medicine; Visit Provider Internal Medicine
DX: Z12.31 Encounter for screening mammogram for malignant neoplasm of breast (principal)
CPT/HCPCS: 77063; 77067

== ENCOUNTER → 2022-09-27 | Outpatient (CLI) | payer MEDICARE, OTHER, SELFPAY ==
[2019-05-01 20:53] VITALS: BMI 34.5
--- NOTE | 2022-09-27 | DI.RAD.S_ITS ---
Bone Density Report Name: YEFRI GUARDADO Age: 72 Sex: Female Ethnicity: White Date of : 1950 Indication: postmenopausal osteoporosis; monitoring treatment; Referring Provider: LINO OSBORN Study: Bone densitometry was performed. Exam Date: September 27, 2022 Accession number: [id number] Bone Density: Region BMD T-score Z-score Classification AP Spine(L1-L4) 0.898 -1.4 0.8 Osteopenia Femoral Neck (Left) 0.579 -2.4 -0.5 Osteopenia Total Hip (Left) 0.806 -1.1 0.5 Osteopenia Femoral Neck (Right) 0.540 -2.8 -0.9 Osteoporosis Total Hip (Right) 0.730 -1.7 -0.1 Osteopenia Total Hip Mean 0.768 -1.4 0.2 Osteopenia World Health Organization criteria for BMD impression classify patients as: Normal (T-score at or above -1.0), Osteopenia (T-score between -1.0 and -2.5), or Osteoporosis (T-score at or below -2.5). 10-year Fracture Risk: FRAX not reported because: Some T-score for Spine Total or Hip Total or Femoral Neck at or below -2.5 Treated for osteoporosis Previous Exams: -- Region Exam Age BMD T-score BMD Change BMD Change Date g/cm2 vs Baseline vs Previous -- AP Spine (L1-L4) 09/27/2022 72 0.898 -1.4 0.127 (16.4%)# 0.126 (16.4%)# 12/09/2020 70 0.771 -2.5 Total Hip(Left) 09/27/2022 72 0.806 -1.1 0.050 (6.6%)# 0.050 (6.6%)# 12/09/2020 70 0.757 -1.5 Total Hip(Right) 09/27/2022 72 0.730 -1.7 0.035 (5.0%)# 0.035 (5.0%)# 12/09/2020 70 0.695 -2.0 -- *Denotes significance at 95% confidence level, LSC for AP Spine = 0.022 g/cm2, LSC for Total Hip = 0.027 g/cm2 # Denotes dissimilar scan types or analysis methods Impression: The patient has osteoporosis, based on the Right Femoral Neck T-score. No significant bone loss was observed. Discussion: PATIENT UNDER TREATMENT WITH NO SIGNIFICANT BMD LOSS SINCE LAST EXAM. In an untreated patient, BMD typically declines with age. A lack of decline or gain is usually a sign that treatment is efficacious and fracture risk is reduced. It is important to ask patients whether they are taking their medications and to encourage continued and appropriate compliance with their osteoporosis therapies to reduce fracture risk. It is also important to review their risk factors and encourage appropriate calcium and vitamin D intakes, exercise, fall prevention and other lifestyle measures. Follow-Up: Consider a repeat BMD and Vertebral Fracture Assessment (VFA) exam in 2 years or sooner if medically necessary, to reassess this patient's status. Reported by: ANIL MIRANDA MD on 09/27/2022 2:42:00 PM.
== END ==
LOC: RAD 14:19
PROVIDERS: PCP Internal Medicine; Referring Provider Internal Medicine; Visit Provider Internal Medicine
DX: M81.0 Age-related osteoporosis without current pathological fracture (principal)
CPT/HCPCS: 77080

== ENCOUNTER → 2023-06-28 09:52 | Outpatient (CLI) | payer OTHER, SELFPAY ==
[2019-05-01 20:53] VITALS: BMI 34.5
--- NOTE | 2023-06-28 09:55 | DI.MG.S_ITS ---
BILATERAL DIGITAL SCREENING MAMMOGRAM 3D/2D WITH CAD: 06/28/2023 CLINICAL: Routine screening. Comparison is made to exams dated: 06/27/2022 mammogram, 05/30/2021 mammogram, and 05/26/2020 mammogram - [facility]. Both breasts are almost entirely fatty (category a/<25% glandular tissue). Current study was also evaluated with a Computer Aided Detection (CAD) system. No significant masses, calcifications, or other findings are seen in either breast. There has been no significant interval change. IMPRESSION: NEGATIVE There is no mammographic evidence of malignancy. A 1 year screening mammogram is recommended. Based on the Tyrer Cuzick model (a risk assessment model) the patient's lifetime risk is 2.1% and her 10 year risk is 1.5%. According to the ACR, ACS, and NCCN guidelines, an annual breast MRI exam along with mammogram is recommended if the patient's lifetime risk is 20% or greater. This exam was interpreted at Station ID: [id number]. NOTE: For mammograms, a report in lay terms will be sent to the patient. Approximately 15% of breast malignancies will not be visualized mammographically. In the management of a palpable breast mass, a negative mammogram must not discourage biopsy of a clinically suspicious lesion. Electronically Signed By: Leonid rebolledo/[email or web address]:06/28/2023 15:12:09 letter sent: Normal Exam ACR BI-RADS Category 1: Negative [id number]
== END ==
PROVIDERS: PCP Internal Medicine; Referring Provider Internal Medicine; Visit Provider Internal Medicine
DX: Z12.31 Encounter for screening mammogram for malignant neoplasm of breast (principal)
CPT/HCPCS: 77063; 77067

== ENCOUNTER → 2023-07-03 11:40 | Outpatient (CLI) | payer OTHER, SELFPAY ==
[2019-05-01 20:53] VITALS: BMI 34.5
--- NOTE | 2023-07-03 | DI.RAD.S_ITS ---
PROCEDURE: XR CERVICAL SPINE 2V OR 3V INDICATIONS: hand numbness TECHNIQUE: 3 view(s) of the cervical spine were acquired. COMPARISON: None. FINDINGS: Bones: There is 3 mm anterolisthesis of C4 on C5. Degenerative endplate changes are noted throughout cervical spine. No acute fracture or dislocation. The lateral masses of C1 appear intact on the odontoid view. No suspicious bony lesions. Soft tissues: No prevertebral soft tissue swelling. IMPRESSION: 3 mm anterolisthesis of C4 on C5. No cervical spine fracture or dislocation. Degenerative disc disease throughout cervical spine more notably at C4-5 through C6-7 levels. Dictated by: Shoaib Escobar M.D. on 07/03/2023 at 13:37 Approved by: Shoaib Escobar M.D. on 07/03/2023 at 13:38
== END ==
PROVIDERS: PCP Internal Medicine; Referring Provider Physician Assistant; Visit Provider Physician Assistant
DX: M50.321 Other cervical disc degeneration at C4-C5 level (principal); M43.12 Spondylolisthesis, cervical region; R20.0 Anesthesia of skin
CPT/HCPCS: 72040

== ENCOUNTER → 2024-06-02 14:59 | Outpatient (CLI) | payer MEDICARE, OTHER, SELFPAY ==
[2019-05-01 20:53] VITALS: BMI 34.5
--- NOTE | 2024-06-02 | DI.RAD.S_ITS ---
PROCEDURE: XR DEXA AXIAL SKELETON INDICATIONS: Age-related osteoporosis without current pathological fractu COMPARISON: [facility], , XR DEXA AXIAL SKELETON, 09/27/2022, 14:29. [facility], CR, XR DEXA AXIAL SKELETON, 12/09/2020, 12:30. FINDINGS: Lumbar Spine: Bone mineral density 0.892 g/cm2, T score -1.4, unchanged. Left Hip: Bone mineral density 0.812 g/cm2, T score -1.1, unchanged. Left Femoral Neck: Bone mineral density 0.595 g/cm2, T score -2.3, previously -2.4. Fracture Risk Calculation (when applicable): Prior parental fracture, previous fracture and rheumatoid arthritis history noted. 10-year fracture risk of a major osteoporotic fracture 40 percent and of a hip fracture 21 percent. (T score greater or equal to -1.0 to: NORMAL) (T score from -1.1 to -2.4: OSTEOPENIA) (T score less than or equal to -2.5: OSTEOPOROSIS) IMPRESSION: Osteopenia. Follow-up guidelines as follows: Osteoporosis: Consider a repeat DEXA and Vertebral Fracture Assessment (VFA) exam in 2 years or sooner if medically necessary, to reassess this patient's status. Osteopenia: Consider a repeat DEXA in 2-3 years to reassess this patient's status, or if there is a new clinical indication. Normal: Consider a repeat DEXA in 5 years or sooner, or if there is a new clinical indication. All treatment decisions require clinical judgment and consideration of individual patient factors, including patient preferences, comorbidities, previous drug use, risk factors not captured in the FRAX model (e.g., frailty, falls, vitamin D deficiency, increased bone turnover, interval significant decline in bone density ) and possible under- or over-estimation of fracture risk by FRAX. In addition, the NOF Guide recommends that FDA-approved medical therapies be considered in postmenopausal women and men age >= 50 years with a: * Hip or vertebral (clinical or morphometric) fracture * T-score of <=-2.5 at the spine or hip * Ten-year fracture probability by FRAX of >= 3% for hip fracture or >=20% for major osteoporotic fracture. People with diagnosed cases of osteoporosis or at high risk for fracture should have regular bone mineral density tests. For patients eligible for Medicare, routine testing is allowed once every 2 years. The testing frequency can be increased to one year for patients who have rapidly progressing disease, those who are receiving or discontinuing medical therapy to restore bone mass, or have additional risk factors. Dictated by: Landon Schaefer M.D. on 06/02/2024 at 18:28 Approved by: Landon Schaefer M.D. on 06/02/2024 at 18:29
== END ==
PROVIDERS: PCP Internal Medicine; Referring Provider Internal Medicine; Visit Provider Internal Medicine
DX: M81.0 Age-related osteoporosis without current pathological fracture (principal)
CPT/HCPCS: 77080

== ENCOUNTER → 2024-07-05 12:54 | Outpatient (CLI) | payer MEDICARE, OTHER, SELFPAY ==
[2019-05-01 20:53] VITALS: BMI 34.5
--- NOTE | 2024-07-05 | DI.MG.S_ITS ---
BILATERAL DIGITAL SCREENING MAMMOGRAM 3D/2D WITH CAD: 07/05/2024 CLINICAL: Routine screening. Comparison is made to exams dated: 06/28/2023 mammogram, 06/27/2022 mammogram, and 05/30/2021 mammogram - [facility]. The breasts are almost entirely fatty (category a/<25% glandular tissue). Current study was also evaluated with a Computer Aided Detection (CAD) system. No significant masses, calcifications, or other findings are seen in either breast. There has been no significant interval change. IMPRESSION: NEGATIVE There is no mammographic evidence of malignancy. A 1 year screening mammogram is recommended. Based on the Tyrer Cuzick model (a risk assessment model) the patient's lifetime risk is 2.0% and her 10 year risk is 1.6%. According to the ACR, ACS, and NCCN guidelines, an annual breast MRI exam along with mammogram is recommended if the patient's lifetime risk is 20% or greater. This exam was interpreted at Station ID: [id number]. NOTE: For mammograms, a report in lay terms will be sent to the patient. Approximately 15% of breast malignancies will not be visualized mammographically. In the management of a palpable breast mass, a negative mammogram must not discourage biopsy of a clinically suspicious lesion. Electronically Signed By: Ricardo [email or web address]/francine:07/07/2024 07:36:21 letter sent: Normal Exam ACR BI-RADS Category 1: Negative
== END ==
PROVIDERS: PCP Internal Medicine; Referring Provider Internal Medicine; Visit Provider Internal Medicine
DX: Z12.31 Encounter for screening mammogram for malignant neoplasm of breast (principal); R92.313 Mammographic fatty tissue density, bilateral breasts
CPT/HCPCS: 77063; 77067

== ENCOUNTER → 2024-11-05 12:59 | Outpatient (CLI) | payer MEDICARE, OTHER, SELFPAY ==
[2019-05-01 20:53] VITALS: BMI 34.5
--- NOTE | 2024-11-05 13:00 | DI.CT.S_ITS ---
PROCEDURE: CT CERVICAL SPINE WO CON INDICATIONS: Chronic radicular cervical pain TECHNIQUE: Noncontrast 3 mm thick sections acquired from the skull base to the T4 level. Sagittal and coronal reformats were then constructed. For radiation dose reduction, the following was used: automated exposure control, adjustment of mA and/or kV according to patient size. COMPARISON: None. FINDINGS: Image quality: Excellent. Bones: Straightening of the normal cervical lordosis. Degenerative grade 1 anterior spondylolisthesis C4-5. Disc space narrowing and hypertrophic facet joints noted in the mid to lower cervical spine. No significant central stenosis throughout the exam. Craniovertebral relationships are normal Soft tissues: Prevertebral soft tissues are normal in thickness. No paravertebral hematomas. No apical pneumothoraces. IMPRESSION: Multilevel degenerative disc disease and arthropathy associated with grade 1 anterior spondylolisthesis C4-5, but no central or foraminal stenosis throughout the exam. Approved by: Joe Murrell M.D. on 11/05/2024 at 16:38
== END ==
LOC: CT 12:59
PROVIDERS: PCP Internal Medicine; Referring Provider Internal Medicine; Visit Provider Internal Medicine
DX: M50.121 Cervical disc disorder at C4-C5 level with radiculopathy (principal); M47.22 Other spondylosis with radiculopathy, cervical region; M43.12 Spondylolisthesis, cervical region; R20.0 Anesthesia of skin; G89.29 Other chronic pain
CPT/HCPCS: 72125